=== PATIENT | male | born 1965 | race Caucasian/White ===

== ENCOUNTER → 2019-12-20 11:01 | Outpatient (CLI) | payer MEDICARE, SELFPAY ==
[2019-12-20 10:36] VITALS: BMI 34.2
[2019-12-20 13:02] LABS: Anion Gap 7 (5-15); BUN 16 mg/dL (7-18); Calcium,Total 9.6 mg/dL (8.5-10.1); Chloride 104 mmol/L (98-107); EST Glomerular Filtration Rate 83 mL/min (>60); Est Glom Filt Rate - Afr Amer 100 mL/min (>60); Glucose 148 mg/dL (74-106); Potassium 4.3 mmol/L (3.5-5.1); Sodium Level 137 mmol/L (136-145)
== END ==
PROVIDERS: PCP Family Medicine; Referring Provider Family Medicine; Visit Provider Family Medicine
DX: I10 Essential (primary) hypertension (principal)
CPT/HCPCS: 36415; 80048

== ENCOUNTER → 2020-08-19 10:57 | Outpatient (CLI) | payer MEDICARE, SELFPAY ==
[2020-07-01 10:59] VITALS: BMI 35.3
[2020-08-19 12:42] LABS: Hemoglobin A1c 7.9 % (3.8-5.6)
[2020-08-19 12:44] LABS: Anion Gap 3 (5-15); BUN 15 mg/dL (7-18); BUN/Creat Ratio 14.9 RATIO (10-20); Calcium,Total 9.1 mg/dL (8.5-10.1); Chloride 105 mmol/L (98-107); Creatinine, Serum 1.01 mg/dL (0.70-1.30); EST Glomerular Filtration Rate 82 mL/min (>60); Est Glom Filt Rate - Afr Amer 99 mL/min (>60); Glucose 202 mg/dL (74-106); Potassium 4.4 mmol/L (3.5-5.1); Sodium Level 136 mmol/L (136-145)
== END ==
PROVIDERS: PCP Family Medicine; Referring Provider Family Medicine; Visit Provider Family Medicine
DX: E11.9 Type 2 diabetes mellitus without complications (principal)
CPT/HCPCS: 36415; 80048; 83036

== ENCOUNTER → 2020-08-27 17:38 | Outpatient (CLI) | payer MEDICARE, SELFPAY ==
[2020-07-01 10:59] VITALS: BMI 35.3
--- NOTE | 2020-08-27 17:46 | MRI_ITS ---
STUDY: MRI LUMBAR SPINE WITHOUT CONTRAST REASON FOR EXAM: Male, 55 years old. increasing pain TECHNIQUE: Standardized fat and water weighted pulse sequences were obtained in the sagittal and axial planes. COMPARISON: None FINDINGS: Normal lumbar lordosis. There is no substantial scoliosis. Normal conus medullaris that terminates at the T12. L1-2: There is minimal disc space narrowing and endplate spondylosis. There is no significant disc herniation, central canal or foraminal stenosis. Moderate hypertrophic facet arthropathy L2-3: There is minimal disc space narrowing and endplates spondylosis. Mild disc bulge and moderate facet arthropathy with moderate central canal stenosis. No significant foraminal stenosis. L3-4: There is moderate disc space narrowing and endplates spondylosis. Mild disc bulge and hypertrophic facet arthropathy with moderate central canal stenosis. Mild right and mild left foraminal stenosis. There is laminectomy L4-5: There is moderate disc space narrowing and endplates spondylosis. Mild disc bulge and hypertrophic facet arthropathy with moderate central canal stenosis. Mild right and mild left foraminal stenosis. There is laminectomy L5-S1: There is mild disc space narrowing and endplates spondylosis. Mild disc bulge and severe facet arthropathy without significant central canal stenosis. Mild right and mild left foraminal stenosis. There is laminectomy. Normal visualized sacral ala. MRI/Spine Lumbar (Routine) IMPRESSION: L2/L3: Moderate central canal stenosis. L3/L4: Moderate central canal stenosis. L4/L5: Moderate central canal stenosis. Laminectomies Electronically Signed: Mamie Rivera MD at 15:57 EDT Tel , Service support ,
== END ==
PROVIDERS: PCP Family Medicine; Referring Provider Family Medicine; Visit Provider Family Medicine
DX: M48.061 Spinal stenosis, lumbar region without neurogenic claudication (principal)
CPT/HCPCS: 72148

== ENCOUNTER 2020-10-09 12:43 | Emergency (ER) | payer MEDICARE, SELFPAY ==
[2020-07-01 10:59] VITALS: BMI 35.3
[2020-10-09 12:43] VITALS: BP 178/91; PULSE 95; RESP 16; TEMP 36.6; O2SAT 97; BMI 33.7
[2020-10-09] MEDS: Ketorolac 30 MG/ML Syringe IM (13:55)
[2020-10-09] MEDS: morphine 10 MG/ML Syringe 8 MG IM (13:55)
--- NOTE | 2020-10-09 15:02 | EX.ED.DYSGE1 ---
HPI History of Present Illness Chief Complaint: Back Narrative Narrative: 55-year-old male patient Dr. Jaxson Crowe who has a longstanding history of back pain. He reports it is gradually worsened over the past 2 years. He denies any recent injury. No fall, MVA, or change in activity. However, he reports that over the past 3 weeks when he walks he feels like he is going to lose control of his bowels. He has not had any fecal incontinence. He is not had any urinary retention. Patient reports he has an aching lower back pain is now 10 hours and 5-10 currently. Is worsened by walking and standing. Relieved by remaining still. He reports that he has paresthesias in his legs bilaterally that come and go. He denies any new paresthesias currently. Patient has a history of a laminectomy in 1990. He had an MRI ordered by his primary care physician on August 27. [facility] Medical History (Updated 10/09/20 @ 17:[address] Melquiades Chang MD) Back problem Diabetes Hypertension Neuropathy Home Medications metformin 500 mg tablet,extended release 24 hr 500 mg PO DAILY #90 tab 07/01/20 [Rx Last Taken Unknown] glipizide 2.5 mg tablet, extended release 24 hr 2.5 mg PO DAILY #60 tablet 08/19/20 [Rx Last Taken Unknown] amlodipine 5 mg tablet 5 mg PO DAILY #90 tab 10/01/20 [Rx Last Taken Unknown] ibuprofen 400 mg PO BID 10/09/20 [History Last Taken Unknown] naproxen 500 mg PO BID #14 tab 10/09/20 [Rx Last Taken Unknown] ondansetron 4 mg PO Q8H PRN #10 tab 10/09/20 [Rx Last Taken Unknown] oxycodone-acetaminophen [Percocet] 1 tab PO Q6H PRN 5 Days #20 tab 10/09/20 [Rx Last Taken Unknown] Allergy/AdvReac Type Severity Reaction Status Date / Time lisinopril Allergy Severe cough Verified 10/09/20 12:45 Family History Grandfather Brain cancer Father Myocardial infarction Surgical History History of appendectomy History of back surgery History of carpal tunnel surgery of left wrist History of carpal tunnel surgery of right wrist History of shoulder surgery History of uvulopalatopharyngoplasty Social History Smoking Status: Former smoker how long ago did patient quit smokin years ago alcohol intake: current alcohol intake frequency: holidays/special occasions only Alcohol type: beer substance use type: does not use what type of physical activity do you participate in: none ROS ROS ED Constitutional Constitutional ED: Denies chills, fever(s) or sweats Eyes Eyes: Denies change in vision ENT ENT ED: Denies sore throat Cardiovascular Cardiovascular: Denies chest pain Respiratory/Chest Respiratory/Chest: Denies cough, dyspnea or dyspnea on exertion Gastrointestinal Gastrointestinal: Denies abdominal pain, diarrhea, melena, nausea or vomiting Genitourinary Genitourinary ED: Denies dysuria or urinary frequency Musculoskeletal Musculoskeletal: Reports back pain; Denies myalgias Integumentary Denies rash Neurologic Neurologic: Reports paresthesias; Denies headache(s) or weakness EXAM Physical Exam Const Vital Signs: 10/09/20 12:43 Temperature 97.8 F Temperature Source Temporal Pulse Rate 95 Respiratory Rate 16 Blood Pressure 178/91 H Blood Pressure Mean 120 Pulse Ox 97 Oxygen Delivery Method Room Air Positive well nourished and well developed General Appearance ED: well developed HEENT normocephalic and atraumatic Eyes PERRL Neck no lymphadenopathy, supple and no JVD General: Negative for tenderness Chest Wall Chest: Negative for tenderness Resp clear to auscultation bilaterally Effort and Inspection: Negative for respiratory distress Cardio regular rate, regular rhythm and no murmurs GI normal to inspection, nondistended, normoactive bowel sounds, soft to palpation and non-tender GI Narrative: No guarding, rebound, or peritoneal signs Narrative: Rectal exam shows decreased tone, but it he does have tone. There is normal perianal sensation. Patient refused a catheter for postvoid residual. Back/Spine Back/Spine Narrative: Diffuse moderate tenderness to palpation over the lumbar spine and the paraspinous musculature in the lumbar region. No point tenderness. Negative straight leg bilaterally. 5/5 DR, PF, EHL on the left. He has foot drop on the right. He has decreased sensation light touch diffusely right leg and lateral right thigh. Patient reports that the foot drop and paresthesias are chronic. Normal sensation light touch on the left. 2+ dorsalis pedis pulse bilaterally. Extremity: No clubbing, cyanosis, or edema. Extremity General Extremety ED: Negative for edema or tenderness General Extremity: Negative for edema Neuro oriented x3, CN's II-XII intact bilaterally and no sensory deficits noted Sensorium / Orientation: awake and alert Motor Exam: strength 5/5 throughout Psych mental status grossly normal Skin no rashes or lesions noted [facility] Treatment and Re-Evaluation Comments:: Emergency department course: Patient was given Toradol and morphine IM. He is resting more comfortably. Treatment plan: The patient was discussed with Dr. Walker who will see him in the office in 6 days. Patient will be discharged with Percocet, naproxen, and Zofran. The signs and symptoms of cauda equina syndrome were discussed and he is instructed to return for these. Disposition: To home in improved and stable condition. This note was generated with [employer] dictation software. It may contain incorrect words, spelling, and punctuation that were not noted in review of the chart prior to signing. Discharge Plan Triage Chief Complaint: Back ED Provider: Melquiades Chang Dx/Rx/DC Orders Clinical Impression: Spinal stenosis Instructions: ED Back Pain (Acute or Chronic) Prescriptions: New oxycodone-acetaminophen [Percocet] 5-325 mg tablet 1 tab PO Q6H PRN (Reason: pain) 5 Days Qty: 20 RF: 0 ondansetron 4 mg tablet,disintegrating 4 mg PO Q8H PRN (Reason: nausea and vomiting) Qty: 10 RF: 0 naproxen 500 MG tablet 500 mg PO BID Qty: 14 RF: 0 No Action metformin 500 mg tablet extended release 24 hr 500 mg PO DAILY Qty: 90 RF: 1 glipizide 2.5 mg tablet extended release 24hr 2.5 mg PO DAILY Qty: 60 RF: 0 ibuprofen 400 mg Tablet 400 mg PO BID RF: 0 amlodipine 5 mg tablet 5 mg PO DAILY Qty: 90 RF: 1 Primary Care Provider: Jaxson Crowe Referrals: Jaxson Crowe DO [Primary Care Provider] - Omkar Walker DO [STAFF PHYSICIAN] - 10/15/20 Disposition Disposition: Home, self care Discharge Date/Time: 10/09/20 15:15
== END 2020-10-09 15:15 | disposition home or self-care (01) ==
LOC: ED 13:47
PROVIDERS: Emergency Provider Emergency Medicine; PCP Family Medicine
DX: M48.061 Spinal stenosis, lumbar region without neurogenic claudication (principal); I10 Essential (primary) hypertension; E11.40 Type 2 diabetes mellitus with diabetic neuropathy, unspecified; Z79.84 Long term (current) use of oral hypoglycemic drugs; Z79.899 Other long term (current) drug therapy; Z87.891 Personal history of nicotine dependence
CPT/HCPCS: 96372; 99283

== ENCOUNTER 2020-12-08 15:00 | Outpatient (RCR) | payer MEDICARE, SELFPAY ==
[2020-10-27 10:00] VITALS: BMI 36.8
--- NOTE | 2020-11-06 15:26 | HP.PTEVAL_ITS ---
Patient's Visit Information TIMOTEO REYES is a 55 year old M referred to Physical Therapy by Dr. Mina Mcadams MD with a diagnosis of Lumbago. Date of Evaluation: 11/06/20 Physical Therapist: Angelica Michelle DPT - Visit Plan Frequency: 2x /Week Duration: 4 Weeks Plan: Aquatic Therapy- focus on LE and core strength/stabilization - Subjective Patient reports that he was in PT for a year about 30 years ago when he injured his back-had spinal stenosis at 24 years old. They put him on disability because of his back- but went back to work- he is still currently working but is off due to his shoulder. He has been off for his shoulder for about 4 years. Has not been doing heavy lifting for over 4 years. 3-4 years he has had problems with his back but in July he was walking and he suddenly had saddle parasthesis- went and sat down and it happened later that day too- now if he walks more than 100 feet it happens. When he stands he feels that his legs are very weak. Numbess all the way down to the toes and has N/T in his genital area. If he sits down he leans forwards then pain goes away. Agg: walking, standing Worst: 710 Best: 3/10 Mostly described as a toothache. Eases: sitting and leaning forwards, laying on the right side. Sleep: disturbed- on the couch due to his right shoulder. MRI and x-rays done by the neurologist. He feels he has claudication- possible cuada equina- is going to have an EMG. Thinks he will probably have to have surgery to decrease the pain. PMHX/Meds: see list scanned in chart. - Objective Posture: poor in both sitting and standing with moderate forward head and rounded shoulders- can correct RS with verbal and tactile cues but is unable to maintain. Gait: antalgic- foot drop on the right LE with poor heel/toe pattern. Stairs: asc/desc 8 recip with 1 HR- poor control with descent. HR/TR: Left side able without UE A- Right: unable to TR or HR in sitting or standing. SLS: weight shift but unable to SLS without UE A. ROM: Flexion: hands to mid maciel, Extn: neutral, SB: decreased by 50% Rot: decreased by 50%- pain with all lumbar motions Hip/Ankle/Knee: WFL. Strength: Core: poor, Hip: 4/5 throughout, Knee: 5/5 Ankle: Left: 5/5, Right: 2+/5. Special Test: Dural signs: positive, MELISSA: negative, Slump: positive. Sensation: diminished in right LE to gross touch - Goals Goal 1:: Patient will be I with HEP and progression Goal Time Frame: 4-6 Weeks Goal 2:: Patient will maintain proper posture t/o tx session to demo increased core s/s Goal Time Frame: 4-6 Weeks Goal 3:: Patient will report no more than 3/10 pain for 1 week Goal Time Frame: 4-6 Weeks - Rehabilitation Potential Physical Therapy Diagnosis: Patient presents with hypomobility- he has decreased ROM, LE and core strength/stabilization, flexibility and muscular endurance l eading to poor posture and increased pain with ADL's. Rehabilitation Potential: Fair - Anticipated Interventions Therapeutic Exercise to Include: Strength training, Endurance training, Balance training, Agility training, Body mechanics, Postural training, Flexibilty training, Gait and locomotor training, Neuromotor development, In an aquatic setting, Passive ROM, Active ROM, Dynamic Lumbar Stabilization, Scapular Strength/Stabilization For the Purpose of:: To decrease pain, To improve muscle performance and motor function Thank you for the opportunity to evaluate your patient. For Medicare and Medicare HMO plans, please review the plan of care and approve it. It will need to be FAXED BACK to us at [phone] for Medicare purposes. For Medicare only, by signing this I certify the plan of care. Please let me know if there are questions or concerns regarding this plan of care. Physician Signature: Date:
--- NOTE | 2020-12-08 15:56 | HP.PTDCSUM ---
It has been my pleasure to treat TIMOTEO REYES referred by Dr. Mina Mcadams MD, with the diagnosis of Lumbago for a total of 10 visit(s). Discharge Date: Please see the following information for a summary of their discharge status. Subjective: Patient reports that his back is about the same- feels like the medication just delays it. He can walk a little further but still sitting down makes it less. Worst: 6/10 aggravated all the time- tooth ache. Goes back to the MD the 29 of December. Is supposed to get an EMG but has not called yet. Is planning to have a C9 to get his shoulder done. No falls but still has some significant drop foot on the right. LB Pain Intensity (Out of 10): 6 bilat. LE Pain Intensity (Out of 10): 6 % Improvement: 25 Objective/Function: Posture: poor in both sitting and standing with moderate forward head and rounded shoulders- can correct RS with verbal and tactile cues but is unable to maintain. Gait: antalgic- foot drop on the right LE with poor heel/toe pattern. Stairs: asc/desc 8 recip with 1 HR- poor control with descent. HR/TR: Left side able without UE A- Right: unable to TR or HR in sitting or standing. SLS: weight shift but unable to SLS without UE A. ROM: Flexion: hands to mid maciel, Extn: neutral, SB: decreased by 50% Rot: decreased by 50%- pain with all lumbar motions Hip/Ankle/Knee: WFL. Strength: Core: poor, Hip: 4/5 throughout, Knee: 5/5 Ankle: Left: 5/5, Right: 2+/5. Special Test: Dural signs: positive, MELISSA: negative, Slump: positive. Sensation: diminished in right LE to gross touch. No significant changes since initial IE Goal 1:: Patient will be I with HEP and progression Goal Progress: Goal Met Goal 2:: Patient will maintain proper posture t/o tx session to demo increased core s/s Goal Progress: Not Progressing Goal 3:: Patient will report no more than 3/10 pain for 1 week Goal Progress: Not Progressing Plan: 12/08/2020: Discharge- return to MD for further evaluation. *f/u with new HEP glute med. strengthening, hip flexor/quad, gastroc and HSS. Aquatic Therapy- focus on LE and core strength/stabilization If there are questions or concerns regarding this patient's physical therapy, please feel free to call me at [phone]. Thank you for the referral of this patient. Sincerely, Angelica Michelle, [facility] Balance/Gait/Functional tests - Balance/Special Test Scores Oswestry Low Back Score: 23
== END 2020-12-08 19:00 | disposition home or self-care (01) ==
LOC: PT 15:00
PROVIDERS: PCP Family Medicine; Referring Provider Psychiatry & Neurology Neurology; Visit Provider Psychiatry & Neurology Neurology
DX: M54.42 Lumbago with sciatica, left side (principal); M54.41 Lumbago with sciatica, right side; M48.062 Spinal stenosis, lumbar region with neurogenic claudication
CPT/HCPCS: 97113; 97162; 97164

== ENCOUNTER → 2020-12-29 14:01 | Outpatient (CLI) | payer MEDICARE, SELFPAY ==
[2020-12-02 10:02] VITALS: BMI 36.7
[2020-12-29 18:05] LABS: Hematocrit 46.7 % (40-54); Hemoglobin 15.9 g/dL (13.0-16.5); Mean Corpuscular Hgb 30.9 pg (27.0-32.0); Mean Corpuscular Volume 90.7 fL (80-94); Mean Platelet Vol. 10.2 fl (6.2-12.0); Platelet Count 222 K/mm3 (150-450); RBC Distribution Width CV 12.4 % (11.6-14.6); RBC Distribution Width SD 41.3 fl (35.1-43.9); Red Blood Count 5.15 M/mm3 (4.6-6.2)
[2020-12-29 18:14] LABS: Vitamin B12 427 pg/mL (211-911)
[2020-12-29 18:38] LABS: Thyroid Stim Hormone (TSH) 0.99 uIU/mL (0.358-3.74)
[2020-12-31 20:08] LABS: Free Kappa Light Chains 22.2 mg/L (3.3-19.4)
== END ==
PROVIDERS: PCP Family Medicine; Referring Provider Psychiatry & Neurology Neurology; Visit Provider Psychiatry & Neurology Neurology
DX: M53.9 Dorsopathy, unspecified (principal); E11.42 Type 2 diabetes mellitus with diabetic polyneuropathy
CPT/HCPCS: 36415; 82607; 82746; 83883; 84443; 85027

== ENCOUNTER → 2021-01-02 11:06 | Outpatient (CLI) | payer MEDICARE, SELFPAY ==
[2020-12-02 10:02] VITALS: BMI 36.7
--- NOTE | 2021-01-02 13:49 | NEURO ---
NCS and/or EMG Patient Report Ordering Doctor: Mina Mcadams DATE OF SERVICE: 01/02/21 Indication: Chronic lower extremity weakness (right greater than left). Symptoms of neurogenic claudication with prolonged standing. History of remote lumbar decompression and fusion. Evaluate for worsening radiculopathy. Findings: Nerve conduction studies were performed in the right and left lower extremities. The right peroneal motor study recording the extensor digitorum brevis showed a reduced amplitude, normal distal latency and normal conduction velocity. No conduction block or focal slowing was present across the fibular neck. The right peroneal motor study recording the tibialis anterior showed a reduced amplitude, normal distal latency and normal conduction velocity. No conduction block or focal slowing was present across the fibular neck. The right tibial motor study recording the abductor hallucis brevis showed a normal amplitude, normal distal latency and normal conduction velocity. Right sural sensory response showed a normal amplitude and conduction velocity. Right superficial peroneal sensory response showed a normal amplitude and borderline conduction velocity. The left peroneal motor study recording the extensor digitorum brevis showed a normal amplitude, normal distal latency and normal conduction velocity. No conduction block or focal slowing was present across the fibular neck. The left peroneal motor study recording the tibialis anterior showed a normal amplitude, normal distal latency and normal conduction velocity. No conduction block or focal slowing was present across the fibular neck. The left tibial motor study recording the abductor hallucis brevis showed a normal amplitude, normal distal latency and normal conduction velocity. Left sural sensory response showed a normal amplitude and borderline conduction velocity. Left superficial peroneal sensory response showed a normal amplitude and conduction velocity. Needle EMG of the right lower extremity muscles was performed. No denervation was present in any muscle. Motor units in the right tibialis anterior, flexor digitorum longus and tensor fascia sho were large amplitude, long duration with reduced recruitment. Activation was decreased in the tibialis anterior. Motor units were borderline large in the vastus medialis and medial gastrocnemius. Needle EMG of the left lower extremity muscles was performed. No denervation was present in any muscle. Motor units in the left tibialis anterior, extensor hallucis longus and tensor fascia sho were large amplitude, long duration with reduced recruitment. All other motor unit morphology, activation and recruitment patterns were normal. The lumbar paraspinal muscles were not sampled due to a history of prior low back surgery. Impression: This is an abnormal study. There is electrophysiologic evidence consistent with chronic, bilateral, L5 radiculopathies (more severe on the right). There was no active denervation to suggest ongoing motor axon loss. In addition, there was no evidence of superimposed peripheral neuropathy or peroneal neuropathy in either the right or left lower extremity. The decreased activation seen in some right lower extremity muscles is of unclear significance. This can be seen in cases of pain, poor effort or lesions of the central nervous system. Clinical correlation is recommended. Eric Pimentel D.O.
== END ==
PROVIDERS: PCP Family Medicine; Referring Provider Psychiatry & Neurology Neurology; Visit Provider Psychiatry & Neurology Neurology
DX: M54.41 Lumbago with sciatica, right side (principal); M54.42 Lumbago with sciatica, left side; M48.062 Spinal stenosis, lumbar region with neurogenic claudication
CPT/HCPCS: 95886; 95911

== ENCOUNTER → 2021-01-29 11:39 | Outpatient (CLI) | payer MEDICARE, SELFPAY ==
[2021-02-03 16:09] LABS: Albumin 3.6 g/dL (2.9-4.4); Alpha-1-Globulins 0.2 g/dL (0.0-0.4); Alpha-2-Globulins 0.9 g/dL (0.4-1.0); Gamma Globulin 1.1 g/dL (0.4-1.8); Immunoglobulin A 364 mg/dL (90-386); Immunoglobulin G 1083 mg/dL (603-1613); Immunoglobulin M 31 mg/dL (20-172); PROEL- TOTAL PROTEIN 7.1 g/dL (6.0-8.5)
== END ==
PROVIDERS: PCP Family Medicine; Referring Provider Nurse Practitioner Family; Visit Provider Nurse Practitioner Family
DX: G62.9 Polyneuropathy, unspecified (principal)
CPT/HCPCS: 36415; 82784; 84165; 86334; 86335

== ENCOUNTER → 2022-08-25 | Outpatient (CLI) | payer MEDICARE, SELFPAY ==
[2022-08-25 10:47] LABS: AST(SGOT) 37 U/L (15-37); Absolute Lymphocyte Count 0.73 X10^3/uL (0.83-4.51); Absolute Neutrophil Count 3.2 X10^3/uL (2.0-7.7); Alanine Aminotransfer ALT/SGPT 50 U/L (16-61); Albumin, Serum 3.6 g/dL (3.2-5.0); Alkaline Phosphatase 57 U/L (45-117); Anion Gap 2 (5-15); BUN 19 mg/dL (7-18); BUN/Creat Ratio 20.6 RATIO (10-20); Basophil# 0.04 X10^3/uL; Basophil% 0.8 % (0-1); Calcium,Total 8.8 mg/dL (8.5-10.1); Chloride 104 mmol/L (98-107); Creatinine, Serum 0.92 mg/dL (0.70-1.30); EST Glomerular Filtration Rate 90 mL/min (>60); Eosinophil# 0.11 X10^3/uL; Eosinophils% 2.2 % (0-5); Est Glom Filt Rate - Afr Amer 109 mL/min (>60); Globulin 3.6 g/dL (2.2-4.2); Glucose 154 mg/dL (74-106); Hemoglobin 14.6 g/dL (13.0-16.5); Lymphocyte # 0.73 X10^3/ul (0.83-4.51); Lymphocyte % 14.7 % (19-41); Mean Corp Hgb Conc 33.2 g/dL (32-36); Mean Corpuscular Volume 90.3 fL (80-94); Monocyte# 0.87 X10^3/uL; Monocyte% 17.6 % (0-10); NRBC Flagged by Analyzer 0 % (0-5); Neutrophil # 3.18 X10^3/uL (2.7-7.7); Neutrophil % 64.3 % (47-70); Platelet Count 185 K/mm3 (150-450); Potassium 4.1 mmol/L (3.5-5.1); Protein, Total 7.2 g/dL (6.4-8.2); RBC Distribution Width CV 13.2 % (11.6-14.6); RBC Distribution Width SD 44.1 fl (35.1-43.9); Red Blood Count 4.87 M/mm3 (4.6-6.2); Sodium Level 134 mmol/L (136-145)
[2022-08-25 10:51] LABS: Hemoglobin A1c 7.5 % (3.8-5.6)
[2022-08-25 10:54] LABS: Microalbumin,Random Urine 24.9 mg/L (NO RANGE EST.); Microalbumin:Creatinine Ratio 12.3 mg/g CRE (<30 mg/g CRE)
== END | disposition home or self-care (01) ==
LOC: BIMLAB 08:32
PROVIDERS: PCP Family Medicine; Referring Provider Nurse Practitioner Family; Visit Provider Nurse Practitioner Family
DX: Z01.818 Encounter for other preprocedural examination (principal); E11.9 Type 2 diabetes mellitus without complications; M53.9 Dorsopathy, unspecified; I10 Essential (primary) hypertension
CPT/HCPCS: 36415; 80053; 82043; 82570; 83036; 85025

== ENCOUNTER 2022-12-24 06:11 | Day surgery (SDC) | payer MEDICARE, SELFPAY ==
[2022-12-24 06:39] VITALS: BP 142/98; PULSE 97; RESP 16; TEMP 36.2; O2SAT 100; BMI 32.5
--- NOTE | 2022-12-24 06:48 | PCM.HP.BLA ---
History and Physical Date of Admission: 12/24/22 Intake Vital Signs 11/23/2307:29 12/06/2313:28 Height 5 ft 8.5 in 5 ft 8 in Weight: 226 lb 10 oz 225 lb BMI 33.9 34.2 BP 126/80 H 174/92 H Blood Pressure Location Lt brachial Lt brachial Position Sitting Sitting Respiration 17 17 Pulse 93 80 Pulse Source Monitor Monitor Temp 98.2 F 97.3 F L Temp Source Temporal Temporal Pulse Oximetry (%) 98 98 Oxygen Delivery Method room air room air Intake Visit Reasons: MELENA Chief Complaint: melena Is patient in pain?: No Allergies lisinopril Adverse Reaction (Severe, Verified 12/06/22 14:29) cough Medications tizanidine 4 mg capsule 8 mg (2 x 4 mg) PO QHS PRN low back pain #60 caps 05/25/22 [Rx Confirmed 12/06/22] amlodipine 5 mg tablet 5 mg PO DAILY #90 tabs 06/01/22 [Rx Confirmed 12/06/22] diclofenac sodium 75 mg tablet,delayed release 75 mg PO BID 07/07/22 [History Confirmed 12/06/22] metformin 500 mg tablet,extended release 24 hr 500 mg PO BID #180 tabs 07/07/22 [Rx Confirmed 12/06/22] PFSH Medical History Back problem Carpal tunnel syndrome Cervical spinal stenosis Diabetes Hypertension Neuropathy Osteoarthritis of shoulder Preoperative clearance Surgical History History of appendectomy History of back surgery History of carpal tunnel surgery of left wrist History of carpal tunnel surgery of right wrist History of shoulder surgery History of uvulopalatopharyngoplasty Family History Grandfather Brain cancerFather Myocardial infarction Social History household members: children housing: house Smoking Status: Former smoker pack-years: 5 how long ago did patient quit smokin years ago alcohol intake: current alcohol intake frequency: a few times a week Alcohol type: beer details: Social Drinker substance use type: does not use what type of physical activity do you participate in: none do you feel safe at home: Yes HPI HPI HPI: Patient is a 57-year-old male here for blood in his stool. He reports is been going on for about 2 months. He denies abdominal pain. He says the blood is fairly dark and it is in the stool. He does not report any abdominal pain. Plan on colonoscopy to evaluate the bleeding. He has never had a colonoscopy in the past. I explained endoscopy in detail to the patient. I explained the risks including but not limited to stroke or heart attack with anesthesia, perforation of the GI tract, bleeding, infection. I explained that any of these could necessitate further emergency surgery. The patient understands and all questions were answered sufficiently. The patient wishes to proceed with procedure. Neal Flowers MD Pager: [facility] [address] [place] [address] [address] [place] [address] Office: ROS General General: Yes weight change; No appetite, fatigue, colon cancer, breast cancer or weakness HEENT HEENT: No difficulty swallowing, eye injury, eye surgery, swollen glands or hoarseness Endo Endocrine: Yes diabetes mellitus; No thyroid disease, thyroid cancer, Hair loss, heat intolerance or cold intolerance Skin Skin: No rash or changing moles Musc Musculoskeletal: Yes back problems, arthritis and rheumatoid arthritis; No gout or joint pain Cardio Cardiovascular: Yes high blood pressure; No murmur, pacemaker, heart disease, atrial fibrillation, heart attack, heart stent, palpitations, shortness of breat with exertion or chest pain Psych Psychiatric: No depression, anxiety or hearing voices Resp Respiratory: No shortness of breath, No sleep apnea, No cough, No COPD, No asthma, No emphysema and No wheezing Gastro Gastrointestinal: No abdominal pain, No nausea or vomiting, No diarrhea, No constipation, Yes blood in stool, No acid reflux, No hemorrhoids, No ulcers, No gallbladder problem and No black,tarry stools Johnathan Hematologic: No blood thinners, No blood disorders, No bleeding, No anemia and No blood clots Neuro Neurologic: No system reviewed and no additional complaints, except as documented, No as per HPI, No abnormal gait, No abnormal hearing, No abnormal movements, No abnormal speech, No behavioral changes, No burning sensations, No confusion, No convulsions, No disequilibrium, No dizziness, No localized weakness, No frequent falls, No headache(s), No lack of coordination, No loss of vision, No memory loss, Yes numbness, No other visual disturbances, No radicular pain, No restless legs, No sensory deficit, No syncope, Yes tingling, No tremor(s), No weakness and No other I have examined the patient and the H&P has been reviewed. There are no clinical changes since date of exam.
[2022-12-24] MEDS: Lactated Ringers 1,000 ML 15 ML IV (06:53)
[2022-12-24 07:17] LABS: Bedside Glucose 156 mg/dL (74-106)
[2022-12-24 07:54] VITALS: BP 124/84; BP 142/98; PULSE 71; RESP 16; TEMP 36.2; O2SAT 98
[2022-12-24 08:00] VITALS: BP 115/83; BP 142/98; PULSE 77; RESP 16; O2SAT 96
--- NOTE | 2022-12-24 08:01 | OP.COLON_ITS ---
Patient Name: Pranav Jenkins Procedure Date: 12/24/2022 7:27 AM Date of : 1965 Age: 57 Procedure: Colonoscopy Indications: Rectal bleeding Providers: Neal Flowers MD Referring MD: Jaxson Crowe Medicines: Monitored Anesthesia Care Patient Profile: This is a 57 year old male. Refer to note in patient chart for documentation of history and physical. Last Colonoscopy: none. The patient's first colonoscopy is today. Complications: No immediate complications. Procedure: Pre-Anesthesia Assessment: - Prior to the procedure, a History and Physical was performed, and patient medications and allergies were reviewed. The patient's tolerance of previous anesthesia was also reviewed. The risks and benefits of the procedure and the sedation options and risks were discussed with the patient. All questions were answered, and informed consent was obtained. Prior Anticoagulants: The patient has taken no anticoagulant or antiplatelet agents. After reviewing the risks and benefits, the patient was deemed in satisfactory condition to undergo the procedure. After I obtained informed consent, the scope was passed under direct vision. Throughout the procedure, the patient's blood pressure, pulse, and oxygen saturations were monitored continuously. The Colonoscope was introduced through the anus and advanced to the cecum, identified by appendiceal orifice and ileocecal valve. The colonoscopy was performed without difficulty. The patient tolerated the procedure well. The quality of the bowel preparation was good. The colonoscopy was performed without difficulty. Scope In: 7:39:05 AM Scope Withdrawal Time 0 hours 5 minutes 29 seconds Scope Out: 7:49:20 AM Total Procedure Duration Time 0 hours 10 minutes 15 seconds Findings: The entire examined colon appeared normal on direct and retroflexion views. Impression: - The entire examined colon is normal on direct and retroflexion views. - No specimens collected. Recommendation: - Discharge patient to home. - Resume previous diet. - Continue present medications. - Repeat colonoscopy in 10 years for screening purposes. Procedure Code(s): --- Professional --- 27984, Colonoscopy, flexible; diagnostic, including collection of specimen(s) by brushing or washing, when performed (separate procedure) Diagnosis Code(s): --- Professional --- K62.5, Hemorrhage of anus and rectum CPT copyright 2021 [employer]. All rights reserved. The codes documented in this report are preliminary and upon [employer] review may be revised to meet current compliance requirements. Neal Flowers MD 12/24/2022 8:00:43 AM This report has been signed electronically. Number of Addenda: 0 Note Initiated On: 12/24/2022 7:27 AM
--- NOTE | 2022-12-24 08:01 | OP.CCLET_ITS ---
12/24/2022 Jaxson Crowe Re : Colonoscopy procedure for Pranav Jenkins Dear Dr. Crowe This procedure was performed on Saturday, December 24, 2022. My impressions and recommendations are as follows: Impressions : - The entire examined colon is normal on direct and retroflexion views. - No specimens collected. Recommendations : - Discharge patient to home. - Resume previous diet. - Continue present medications. - Repeat colonoscopy in 10 years for screening purposes. My findings are described in the full procedure note, which is enclosed. If I can be of further assistance, please feel free to contact me at Doctor phone number(s): , Work: . Sincerely, Neal Flowers MD 12/24/2022 8:00:43 AM This report has been signed electronically.
[2022-12-24 08:05] VITALS: BP 133/92; BP 142/98; PULSE 84; RESP 16; O2SAT 98
[2022-12-24 08:10] VITALS: BP 134/96; BP 142/98; PULSE 81; RESP 16; TEMP 36.1; O2SAT 97
[2022-12-24 08:29] VITALS: BP 142/98
== END 2022-12-24 08:47 | disposition home or self-care (01) ==
LOC: EN 06:12 → AC 06:14
PROVIDERS: PCP Family Medicine; Referring Provider Family Medicine; Visit Provider Surgery
PROC: 0DJD8ZZ Inspection of Lower Intestinal Tract, Via Natural or Artificial Opening Endoscopic (ICD-10-PCS; CPT 45378; principal; 2022-12-24 07:25)
DX: K62.5 Hemorrhage of anus and rectum (principal); E11.40 Type 2 diabetes mellitus with diabetic neuropathy, unspecified; Z87.891 Personal history of nicotine dependence; I10 Essential (primary) hypertension; Z79.84 Long term (current) use of oral hypoglycemic drugs
CPT/HCPCS: 45378; 82962; J7120; J2405

== ENCOUNTER → 2023-04-14 | Outpatient (CLI) | payer MEDICARE, SELFPAY ==
--- NOTE | 2023-04-14 13:46 | RAD_ITS ---
STUDY: X-RAY CHEST REASON FOR EXAM: Male, 57 years old. Pleural effusion. TECHNIQUE: Frontal and lateral views of the chest. COMPARISON: None. FINDINGS: Cardiomegaly, sternotomy wires, prominent central pulmonary arteries, hyperinflation, scattered healed parenchymal granulomatous calcifications, blunting of the left costophrenic angle representing small effusion or pleural scarring and diffuse moderate thoracic spondylosis. Right proximal humeral hemiarthroplasty. No abnormality of the visualized soft tissue structures of the upper abdomen. RAD/Chest PA and Lateral IMPRESSION: No active or acute cardiopulmonary disease. Electronically Signed: Manas Catalan MD at 15:50 EST ,
== END | disposition home or self-care (01) ==
LOC: RAD 13:45
PROVIDERS: PCP Family Medicine; Referring Provider Family Medicine; Visit Provider Family Medicine
DX: J90 Pleural effusion, not elsewhere classified (principal)
CPT/HCPCS: 71046

== ENCOUNTER → 2023-04-28 | Outpatient (CLI) | payer MEDICARE, SELFPAY ==
--- NOTE | 2023-04-28 15:12 | RAD_ITS ---
INDICATION: pleural effusion EXAMINATION/TECHNIQUE: X-RAY - XR Chest 2 Views COMPARISON: Prior study dated: 04/14/2023 FINDINGS: LINES/DEVICES: None. LUNGS: Resolved left pleural effusion no focal infiltrate is seen. MEDIASTINUM AND CARDIOVASCULAR STRUCTURES: Normal cardiac silhouette. Status post median sternotomy. Calcified right hilar nodes unchanged. BONES AND SOFT TISSUES: Right humeral hemiarthroplasty is again seen. RAD/Chest PA and Lateral IMPRESSION: No radiographic evidence of acute cardiopulmonary disease. Electronically Signed: Justin Ivey MD at 8:40 EST ,
== END | disposition home or self-care (01) ==
LOC: RAD 15:11
PROVIDERS: PCP Family Medicine; Referring Provider Physician Assistant; Visit Provider Physician Assistant
DX: J90 Pleural effusion, not elsewhere classified (principal); R07.81 Pleurodynia
CPT/HCPCS: 71046

== ENCOUNTER → 2024-06-19 | Outpatient (CLI) | payer MEDICARE, SELFPAY ==
[2024-06-19 15:50] LABS: AST(SGOT) 21 U/L (15-37); Alanine Aminotransfer ALT/SGPT 25 U/L (16-61); Albumin, Serum 3.8 g/dL (3.2-5.0); Alkaline Phosphatase 108 U/L (45-117); Anion Gap 6 (5-15); BUN 7 mg/dL (7-18); BUN/Creat Ratio 9.4 RATIO (10-20); Calcium,Total 8.7 mg/dL (8.5-10.1); Chloride 103 mmol/L (98-107); Cholesterol 156 mg/dL (200); Creatinine, Serum 0.75 mg/dL (0.70-1.30); EST Glomerular Filtration Rate 115 mL/min (>60); Est Glom Filt Rate - Afr Amer 139 mL/min (>60); Glucose 123 mg/dL (74-106); High Density Lipoprotein 57 mg/dL; Protein, Total 7.8 g/dL (6.4-8.2); Sodium Level 137 mmol/L (136-145); Triglycerides 61 mg/dL; Very Low Density Lipoprotein 12 mg/dL (5-40)
== END | disposition home or self-care (01) ==
LOC: BIMLAB 11:24
PROVIDERS: PCP Family Medicine; Visit Provider Family Medicine
DX: I10 Essential (primary) hypertension (principal); I21.4 Non-ST elevation (NSTEMI) myocardial infarction
CPT/HCPCS: 36415; 80053; 80061

== ENCOUNTER 2025-02-08 01:00 | Emergency (ER) | payer MEDICARE, SELFPAY ==
[2025-02-08 01:01] VITALS: BP 162/86; PULSE 67; RESP 18; TEMP 36.4; O2SAT 99; BMI 28.7
--- OUTSIDE RECORDS SUMMARY | 2025-02-08 01:40 | XMS RPT_ITS | CCD ---
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 Jaxson Crowe Primary Care Provider [phone] Dr. Jaxson Crowe Attending Provider [phone] Dr. Jaxson Crowe Referring Provider [phone] Dr. Mina Mcadams Attending Provider [phone] Neal Flowers Attending Provider Dr. Neal Flowers Other Provider [phone] Jaxson Crowe Primary Care Provider [phone] Dr. Jaxson Crowe Attending Provider [phone] Jaxson Crowe Referring Provider [phone] DANIELA Graves Attending Provider [phone] Dr. Jaxson Crowe DO Primary Care Provider Dr. Jaxson Crowe DO Attending Provider [phone] Dr. Jaxson Crowe DO Referring Provider [phone] Jaxson Crowe Referring Unavailable Sebastien, Jaxson R Primary Care Unavailable Jaxson Crowe R Attending Unavailable Jaxson Crowe R Attending Unavailable Sebastien, Jaxson R Referring Unavailable Sebastien, Jaxson R Primary Care Unavailable Sebastien, Jaxson R Primary Care Unavailable Jaxson Crowe R Attending Unavailable Jaxson Crowe Primary Care Unavailable Mina Mcadams Attending Unavailable Mina Mcadams Referring Unavailable Sebastien, Jaxson R Referring Unavailable Brown, Jaxson R Primary Care Unavailable BrownJaxson R Attending Unavailable Allergies Allergy Classification Reported Allergen(s) Allergy Type Date of Onset Reaction(s) Facility (3 sources) Lisinopril Drug Allergy 12-24-2022 cough [facility] (1 source) Lisinopril Drug Allergy 01-01-2025 [facility] Repository Medications Current Medications Medication Drug Class(es) Dates Sig (Normalized) Sig (Original) amLODIPine 5 mg oral tablet (20 sources) Dihydropyridine Calcium Channel Karely Start: 02-21-2018 End: 01-01-2025 take 1 tablet by mouth once daily Amlodipine 5 mg tablet Active 5 mg PO DAILY 90 2 January 01, 2025 1:27pm aspirin 325 mg oral tablet (5 sources) Platelet Aggregation Inhibitor, Nonsteroidal Anti-inflammatory Drug Start: 04-14-2023 Aspirin 325 mg tablet Active mg PO April 14, 2023 1:00am Start: 04-14-2023 Aspirin Active MG PO April 14, 2023 12:00am Start: 11-23-2021 End: 11-23-2021 take 1 capsule by mouth once daily Aspirin 81 mg capsule Discontinued 81 mg PO DAILY November 23, 2021 12:00am November 23, 2021 8:28am atorvastatin 40 mg oral tablet (9 sources) HMG-CoA Reductase Inhibitor Start: 04-14-2023 End: 01-01-2025 take 1 tablet by mouth once daily Atorvastatin 40 mg tablet Active 40 mg PO DAILY 90 January 01, 2025 1:27pm Start: 04-14-2023 Atorvastatin A ctive MG PO April 14, 2023 12:00am Start: 11-23-2021 End: 11-23-2021 take 1 tablet by mouth at bedtime Atorvastatin 80 mg tablet Discontinued 80 mg PO AT BEDTIME November 23, 2021 12:00am November 23, 2021 8:31am 24 hr metFORMIN hydrochloride 500 mg extended release oral tablet (20 sources) Biguanide Start: 07-07-2022 End: 01-01-2025 take 1 tablet by mouth twice daily Metformin 500 mg tablet extended release 24 hr Active 500 mg PO TWICE A DAY 180 January 01, 2025 1:26pm Start: 12-20-2019 End: 07-07-2022 take 1 tablet by mouth once daily Metformin 500 mg tablet extended release 24 hr Discontinued 500 mg PO DAILY 90 March 29, 2022 4:13pm July 07, 2022 5:51pm metoprolol tartrate 25 mg oral tablet (8 sources) beta-Adrenergic Karely Start: 04-14-2023 End: 01-01-2025 take 1 tablet by mouth twice daily Metoprolol Tartrate 25 mg tablet Active 25 mg PO TWICE A DAY 180 January 01, 2025 1:26pm Start: 04-14-2023 Metoprolol Tar trate Active MG PO April 14, 2023 12:00am tiZANidine 4 mg oral capsule (20 sources) Central alpha-2 Adrenergic Agonist Start: 05-25-2022 End: 07-18-2024 take 2 capsules by mouth at bedtime as needed for pain Tizanidine 4 mg capsule Active 8 mg PO AT BEDTIME as needed for low back pain 60 July 18, 2024 4:20pm Start: 11-23-2021 End: 05-25-2022 take 4-8 mg by mouth at bedtime as needed for pain Tizanidine 4 mg capsule Discontinued 4 - 8 mg PO AT BEDTIME as needed for low back pain 60 6 November 23, 2021 8:39am May 25, 2022 11:03am Start: 04-30-2021 End: 11-23-2021 take 2 capsules by mouth at bedtime as needed for pain Tizanidine 4 mg capsule Discontinued 8 mg PO AT BEDTIME as needed for low back pain 60 2 August 27, 2021 9:21am November 23, 2021 8:41am Start: 04-30-2021 End: 04-18-2023 take 8 mg by mouth at bedtime Tizanidine Active 8 MG P O AT BEDTIME 60 April 18, 2023 4:59pm traMADol hydrochloride 50 mg oral tablet (7 sources) Opioid Agonist Start: 07-12-2023 take 1 tablet by mouth every six hours as needed for pain Tramadol 50 mg tablet Active 50 mg PO EVERY 6 HOURS as needed for pain 60 0 July 12, 2023 1:00am Start: 10-21-2020 End: 01-29-2021 take 1 tablet by mouth every six hours as needed for pain Tramadol 50 mg tablet Discontinued 50 mg PO EVERY 6 HOURS as needed for pain 30 0 January 12, 2021 3:32pm January 29, 2021 10:56am Completed/Discontinued Medications Medication Drug Class(es) Dates Sig (Normalized) Sig (Original) acetaminophen 325 mg / HYDROcodone bitartrate 5 mg oral tablet (20 sources) Opioid Agonist Start: 03-05-2021 End: 03-19-2021 Hydrocodone-Acetami nophen 5-325 mg tablet Discontinued 1 {tbl} PO EVERY 6 HOURS as needed for pain 60 14 0 March 05, 2021 March 18, 2021 12:00am March 19, 2021 12:01am Decreased range of motion of right shoulder Stiffness of right shoulder, not elsewhere classified Start: 03-05-2021 End: 03-19-2021 take 1 tablet by mouth every six hours Hydrocodone-Acetaminophen Discontinued 1 TABLET PO EVERY 6 HOURS 60 14 March 05, 2021 March 18, 2021 11:01pm Start: 08-26-2017 End: 05-30-2019 Hydrocodone-Acetaminophen 5- 325 mg tablet Discontinued 1 {tbl} PO EVERY 6 HOURS as needed for pain 90 0 August 22, 2018 May 30, 2019 2:04pm Start: 08-26-2017 End: 05-30-2019 take 1 tablet by mouth every six hours Hydrocodone-Acetaminophen Discontinued 1 TABLET PO EVERY 6 HOURS 120 September 28, 2017 November 22, 2017 10:01am Start: 08-23-2017 End: 08-23-2017 Hydrocodone-Acetaminophen 5- 325 mg tablet Discontinued 1 {tbl} PO EVERY 6 HOURS 0 August 23, 2017 12:00am August 23, 2017 11:24am Start: 08-23-2017 End: 08-23-2017 take 1 tablet by mouth every six hours Hydrocodone-Acetaminophen Discontinued 1 TABLET PO EVERY 6 HOURS August 22, 2017 11:00pm August 23, 2017 10:24am acetaminophen 325 mg / oxyCODONE hydrochloride 5 mg oral tablet (3 sources) Opioid Agonist Start: 10-09-2020 End: 10-17-2020 Oxycodone-Acetaminophen (Percocet) 5-325 mg tablet Discontinued 1 {tbl} PO EVERY 6 HOURS as needed for pain 20 5 0 October 09, 2020 October 17, 2020 2:20pm Spinal stenosis at L4-L5 level Spinal stenosis, lumbar region without neurogenic claudication [id number] actuat albuterol 0.09 mg/actuat metered dose inhaler (3 sources) beta2-Adrenergi c Agonist Start: 11-23-2021 End: 11-23-2021 Albuterol Sulfate 90 mcg/actuation HFA aerosol inhaler Discontinued 2 NMA INHALATION EVERY 6 HOURS as needed November 23, 2021 12:00am November 23, 2021 8:28am Start: 11-23-2021 End: 11-23-2021 take 1 puff(s) by inhalation every six hours Albuterol Sulfate Discontinued 2 PUFF INHALATION EVERY 6 HOURS November 22, 2021 11:00pm November 23, 2021 7:28am baclofen 20 mg oral tablet (18 sources) gamma-Aminobutyric Acid-ergic Agonist Start: 06-30-2021 End: 11-23-2021 take 1 tablet by mouth once daily in the morning as needed for pain Baclofen 20 mg tablet Discontinued 20 mg PO every day in the morning and in the evening as needed for muscle pain/spasm 60 2 August 27, 2021 9:21am November 23, 2021 8:13am Start: 12-29-2020 End: 04-30-2021 take 1 tablet by mouth three times daily as needed for pain Baclofen 20 mg tablet Discontinued 20 mg PO THREE TIMES A DAY as needed for muscle pain/spasm 90 1 March 30, 2021 12:37pm April 30, 2021 11:17am Start: 10-27-2020 End: 12-29-2020 take 1 tablet by mouth three times daily as needed for pain Baclofen 10 mg tablet Discontinued 10 mg PO THREE TIMES A DAY as needed for muscle pain/spasm 90 2 October 27, 2020 12:00am December 29, 2020 1:43pm carvedilol 6.25 mg oral tablet (3 sources) alpha-Adrenergic Karely, beta-Adrenergic Karely Start: 11-23-2021 End: 11-23-2021 take 1 tablet by mouth twice daily at mealtime Carvedilol 6.25 mg tablet Discontinued 6.25 mg PO TWICE A DAY November 23, 2021 12:00am November 23, 2021 8:30am must administer with a meal/food clopidogrel 75 mg oral tablet (8 sources) [id number] Platelet Inhibitor Start: 04-14-2023 End: 01-01-2025 take 1 tablet by mouth once daily Clopidogrel 75 mg tablet Discontinued 75 mg PO DAILY 60 2 October 03, 2024 10:43am January 01, 2025 1:26pm Start: 04-14-2023 Clopidogrel Ac tive MG PO April 14, 2023 12:00am Start: 11-23-2021 End: 11-23-2021 take 1 tablet by mouth once daily Clopidogrel 75 mg tablet Discontinued 75 mg PO DAILY November 23, 2021 12:00am November 23, 2021 8:30am dapagliflozin 10 mg oral tablet (3 sources) Sodium-Glucose Cotransporter 2 Inhibitor Start: 11-23-2021 End: 11-23-2021 take 1 tablet by mouth once daily Dapagliflozin Propanediol (Farxiga) 10 mg tablet Discontinued 10 mg PO DAILY November 23, 2021 12:00am November 23, 2021 8:30am diclofenac sodium 75 mg delayed release oral tablet (20 sources) Nonsteroidal Anti-inflammatory Drug Start: 05-25-2022 End: 07-18-2023 take 1 tablet by mouth twice daily as needed for pain Diclofenac Sodium 75 mg tablet,delayed release (DR/EC) Discontinued 75 mg PO TWICE A DAY as needed for pain 60 9 January 31, 2023 5:41pm July 18, 2023 9:51am Start: 06-30-2021 End: 11-23-2021 take 1 tablet by mouth twice daily as needed for pain Diclofenac Sodium 75 mg tablet,delayed release (DR/EC) Discontinued 75 mg PO TWICE A DAY as needed for pain 60 2 August 27, 2021 9:21am November 23, 2021 8:14am Start: 12-29-2020 End: 04-30-2021 take 1 tablet by mouth twice daily as needed for pain Diclofenac Sodium 75 mg tablet,delayed release (DR/EC) Discontinued 75 mg PO TWICE A DAY as needed for pain 60 1 March 30, 2021 12:37pm April 30, 2021 11:17am flurbiprofen 100 mg oral tablet (3 sources) Nonsteroidal Anti-inflammatory Drug Start: 10-27-2020 End: 12-29-2020 take 1 tablet by mouth three times daily as needed for pain Flurbiprofen 100 mg tablet Discontinued 100 mg PO THREE TIMES A DAY as needed for pain 90 2 October 27, 2020 12:00am December 29, 2020 1:43pm furosemide 20 mg oral tablet (3 sources) Loop Diuretic Start: 11-23-2021 End: 11-23-2021 take 1 tablet by mouth twice daily Furosemide 20 mg tablet Discontinued 20 mg PO TWICE A DAY November 23, 2021 12:00am November 23, 2021 8:29am glipiZIDE 5 mg oral tablet (12 sources) Sulfonylurea Start: 03-05-2021 End: 06-30-2021 take 1 tablet by mouth twice daily Glipizide 5 mg tablet Discontinued 5 mg PO TWICE A DAY 60 3 March 05, 2021 11:50am June 30, 2021 9:47am Start: 10-27-2020 End: 03-05-2021 take 1 tablet by mouth once daily Glipizide 5 mg tablet Discontinued 5 mg PO DAILY October 27, 2020 12:00am March 05, 2021 11:54am Start: 08-19-2020 End: 10-27-2020 take 1 tablet by mouth once daily Glipizide 2.5 mg tablet extended release 24hr Discontinued 2.5 mg PO DAILY 60 0 August 19, 2020 12:00am October 27, 2020 10:09am Start: 07-01-2020 End: 08-19-2020 take 1 tablet by mouth once daily Glipizide 5 mg tablet extended release 24hr Discontinued 5 mg PO DAILY 90 July 01, 2020 1:00am August 19, 2020 10:43am ibuprofen 400 mg oral tablet (3 sources) Nonsteroidal Anti-inflammatory Drug Start: 10-09-2020 End: 10-17-2020 take 1 tablet by mouth twice daily Ibuprofen 400 mg Tablet Discontinued 400 mg PO TWICE A DAY October 09, 2020 12:00am October 17, 2020 2:20pm lisinopril 2.5 mg oral tablet (3 sources) Angiotensin Converting Enzyme Inhibitor Start: 11-23-2021 End: 11-23-2021 take 1 tablet by mouth once daily Lisinopril 2.5 mg tablet Discontinued 2.5 mg PO DAILY November 23, 2021 12:00am November 23, 2021 8:30am meloxicam 15 mg oral tablet (6 sources) Nonsteroidal Anti-inflammatory Drug Start: 02-21-2018 End: 08-22-2018 take 1 tablet by mouth once daily Meloxicam 15 mg tablet Discontinued 15 mg PO DAILY 90 February 21, 2018 11:26am August 22, 2018 1:58pm methylPREDNISolone 4 mg oral tablet (3 sources) Corticosteroid Start: 01-29-2021 End: 03-05-2021 take 1 tablet by mouth once Methylprednisolone 4 mg tablets,dose pack Discontinued 4 mg PO per package directions January 29, 2021 12:00am March 05, 2021 11:40am montelukast 10 mg oral tablet (3 sources) Leukotriene Receptor Antagonist Start: 11-23-2021 End: 11-23-2021 take 1 tablet by mouth at bedtime Montelukast 10 mg tablet Discontinued 10 mg PO AT BEDTIME November 23, 2021 12:00am November 23, 2021 8:30am nabumetone 500 mg oral tablet (3 sources) Nonsteroidal Anti-inflammatory Drug Start: 04-30-2021 End: 06-30-2021 take 1 tablet by mouth twice daily as needed for pain Nabumetone 500 mg tablet Discontinued 1000 mg PO TWICE A DAY as needed for low back pain 120 2 April 30, 2021 1:00am June 30, 2021 9:49am Start: 04-30-2021 End: 06-30-2021 take 1000 mg by mouth twice daily Nabumetone Discontinued 1000 MG PO TWICE A DAY 120 April 30, 2021 12:00am June 30, 2021 8:49am naproxen 500 mg oral tablet (3 sources) Nonsteroidal Anti-inflammatory Drug Start: 10-09-2020 End: 10-17-2020 take 1 tablet by mouth twice daily Naproxen 500 MG tablet Discontinued 500 mg PO TWICE A DAY 14 October 09, 2020 12:00am October 17, 2020 2:19pm Tiotropium-Olod aterol (3 sources) Anticholinergic, beta2-Adrenergic Agonist Start: 11-23-2021 End: 11-23-2021 Tiotropium-Olodate rol (Stiolto Respimat) 2.5-2.5 mcg/actuation mist Discontinued 2 NMA INHALATION DAILY November 23, 2021 12:00am November 23, 2021 8:29am Start: 11-23-2021 End: 11-23-2021 Tiotropium-Olodaterol (Stiol to Respimat) 2.5-2.5 mcg/actuation mist Discontinued 2 PUFF INHALATION DAILY November 22, 2021 11:00pm November 23, 2021 7:29am Start: 11-23-2021 End: 11-23-2021 Tiotropium-Olodaterol (Stiol to Respimat) 2.5-2.5 mcg/actuation mist Discontinued 2 PUFF INHALATION DAILY November 23, 2021 12:00am November 23, 2021 8:29am ondansetron 4 mg disintegrating oral tablet (3 sources) Serotonin-3 Receptor Antagonist Start: 10-09-2020 End: 10-17-2020 take 1 tablet by mouth every eight hours as needed for nausea and vomiting Ondansetron 4 mg tablet,disintegrating Discontinued 4 mg PO Q8H as needed for nausea and vomiting October 09, 2020 12:00am October 17, 2020 2:19pm pantoprazole 40 mg delayed release oral tablet (4 sources) Proton Pump Inhibitor Start: 01-11-2023 End: 10-03-2024 take 1 tablet by mouth once daily Pantoprazole 40 mg tablet,delayed release (DR/EC) Discontinued 40 mg PO DAILY February 16, 2023 4:05pm October 03, 2024 10:44am sertraline 100 mg oral tablet (3 sources) Serotonin Reuptake Inhibitor Start: 11-23-2021 End: 11-23-2021 take 1 tablet by mouth once daily Sertraline (Zoloft) 100 mg tablet Discontinued 100 mg PO DAILY November 23, 2021 12:00am November 23, 2021 8:29am Problems Active Problems Problem Classification Problem Date Documented Da te Episodic/Chronic Abdominal pain (3 sources) Indigestion; Translations: [Epigastric pain] 01-11-2023 Episodic Acute myocardial infarction (3 sources) Myocardial infarction; Translations: [Non-ST elevation (NSTEMI) myocardial infarction] Onset: 01-01-2025 05-12-2023 Chronic Diabetes mellitus without complication (9 sources) Diabetes mellitus; Translations: [Type 2 diabetes mellitus without complications] Onset: 01-01-2025 08-22-2018 Chronic Essential hypertension (8 sources) Hypertensive disorder; Translations: [Essential (primary) hypertension] Onset: 01-01-2025 12-21-2022 Chronic Gastrointestinal hemorrhage (4 sources) Hematochezia; Translations: [Melena] 10-06-2022 Episodic Osteoarthritis (6 sources) Degenerative joint disease of shoulder region; Translations: [Primary osteoarthritis, unspecified shoulder] 08-25-2022 Chronic Other connective tissue disease (4 sources) Triggering of digit; Translations: [Trigger finger, right ring finger] 05-25-2022 Episodic Other connective tissue disease (3 sources) Muscle pain; Translations: [Myalgia, other site] 04-08-2021 Episodic Other lower respiratory disease (2 sources) Rib pain; Translations: [Pleurodynia] 04-28-2023 Episodic Other lower respiratory disease (1 source) Pleurodynia; Translations: [Chest pain, unspecified] 04-28-2023 Episodic Other nervous system disorders (3 sources) Neuropathy; Translations: [Polyneuropathy, unspecified] 08-23-2017 Chronic Other non-traumatic joint disorders (3 sources) Decreased range of shoulder movement; Translations: [Stiffness of right shoulder, not elsewhere classified] 08-27-2021 Episodic Pleurisy; pneumothorax; pulmonary collapse (4 sources) Pleural effusion; Translations: [Pleural effusion, not elsewhere classified] 04-14-2023 Episodic Residual codes; unclassified (3 sources) Edema of lower extremity; Translations: [Localized edema] 12-20-2019 Episodic Residual codes; unclassified (1 source) Insomnia; Translations: [Insomnia, unspecified] 07-18-2024 Episodic Spondylosis; intervertebral disc disorders; other back problems (20 sources) Back problem; Translations: [Dorsopathy, unspecified] Onset: 06-19-2024 08-23-2017 Episodic Unclassified (1 source) Low back pain, unspecified; Translations: [Low back pain, unspecified] Onset: 08-13-2024 Past or Other Problems Problem Classification Problem Date Documented Da te Episodic/Chronic Coronary atherosclerosis and other heart disease (2 sources) Presence of aortocoronary bypass graft; Translations: [Aortocoronary bypass status] Onset: 06-19-2024 04-14-2023 Episodic Other connective tissue disease (1 source) Trigger finger, left index finger; Translations: [Trigger finger, left index finger] Onset: 08-13-2024 Episodic Residual codes; unclassified (1 source) Insomnia, unspecified; Translations: [Insomnia, unspecified] Onset: 08-13-2024 Episodic Results Test Name Value Interpretation Reference Range Facility Internal Medicine Office Vis iton 01-01-2025 Internal Medicine Office Visit [facility] [address] [place], [place] [id number] OFFICE VISIT Date of Service: 01/01/25 MR#: [id number] Acct: [id number] Name: TIMOTEO REYES Rep #: [id number] : 1965 Provider: Dr. Jaxson parry DO Age/Sex: 59/M [place] [facility]: Signed Intake Vital Signs 09/18/24 13:05 01/01/25 13:09 Height 5 ft 8 in 5 ft 8 in Weight: 190 lb 180 lb BMI 28.8 27.3 BP 117/70 130/72 H Blood Pressure Location Lt brachial Lt brachial Position Sitting Sitting Respiration 16 16 Pulse 81 80 Pulse Source Monitor Monitor Temp 97.8 F 97.2 F L Temp Source Temporal Temporal Pulse Oximetry (%) 98 99 Oxygen Delivery Method room air room air Intake Visit Reasons: 3 M FU Chief Complaint: f/u Supervisor Shearing Required: No Accompanied by: Self Is patient in pain?: No Allergies lisinopril Adverse Reaction (Severe, Verified 01/01/25 13:08) cough Medications ???Medication ???Instructions ???Recorded ???Confirmed ???Type aspirin 325 mg tablet mg PO 04/14/23 01/01/25 History tramadol 50 mg tablet 50 mg PO Q6H PRN pain #60 tabs 01/01/25 Rx tizanidine 4 mg capsule 8 mg (2 x 4 mg) PO QHS PRN low 10/0701/01/25 Rx back pain #60 caps amlodipine 5 mg tablet 5 mg PO DAILY #90 tabs 01/01/25 Rx atorvastatin 40 mg tablet 40 mg PO DAILY #90 tabs 01/01/25 0 01/01/25 Rx metformin 500 mg tablet,extended 500 mg PO BID #180 tabs 01/01/25 0 01/01/25 Rx release 24 hr metoprolol tartrate 25 mg tablet 25 mg PO BID #180 tabs 01/01/25 Rx PFSH Medical History Wears partial dentures Wears glasses Alcohol use History of steroid therapy Arthritis Kidney stone Back pain Injury of head and neck History of GI bleed Former smoker History of pain when walking Osteoarthritis of shoulder Preoperative clearance Cervical spinal stenosis Neuropathy Hypertension Diabetes Back problem Surgical History History of surgery on wrist History of total replacement of right shoulder joint History of shoulder surgery History of uvulopalatopharyngoplasty History of appendectomy History of back surgery History of carpal tunnel surgery of right wrist History of carpal tunnel surgery of left wrist Family History Grandfather Brain cancer Father Myocardial infarction Social History household members: children housing: house Smoking Status: Former smoker pack-years: 5 how long ago did patient quit smokin years ago alcohol intake: current alcohol intake frequency: a few times a week Alcohol type: beer details: Social Drinker substance use type: does not use what type of physical activity do you participate in: none do you feel safe at home: Yes HPI HPI Chief Complaint: f/u Details: TIMOTEO REYES, is a 59 M who presents to the office today for a recheck visit. He is planning to append his life and buy an RV and hit the road and not come back anymore. He says he is going to stop taking all of his medicine when he runs out and what ever time he has left he has left. He sees too many people which is sit around and do nothing and he is going to go and hit the road. He asked me how long I thought he had and I said I think he is got a lot of years even if he does not take medicine but certainly he will shorten his life span significantly by going off medications. ROS Const Constitutional: No body ache, excessive sweating, fatigue, fever(s), frequent falls, headache(s), snoring, weakness, weight change, sleep problems or change in appetite Eyes Eyes: No blurry vision, change in vision, eye pain or Light sensitivity ENT ENT: No abnormal hearing, ear or mastoid pain, tinnitus, nasal congestion, headache(s), neck pain or sore throat Resp Respiratory: No cough, shortness of breath, snoring or wheezing Cardio Cardiology: No chest pain at rest, chest pain with exertion, excessive sweating, shortness of breath, dyspnea on exertion, lightheadedness, orthopnea or palpitations Gastro GI: No abdominal pain, change in bowel habits, constipation, cramping, diarrhea, nausea/dyspepsia or vomiting Genitourinary Male: No burning urination, painful urination, urinary incontinence, urinary frequency or blood in urine Musc Musculoskeletal: No abnormal gait, joint pain, back pain, limited range of motion, neck pain, numbness, stiffness, tingling or Arthritis Skin Skin: No dry skin, redness, lesions, itchy eyes, rash or wounds Neuro Neurology: No abnormal gait, abnormal hearing, abnormal speech, dizziness, weakness, frequent falls, headache(s), memory loss, n (more content not included)... Normal [facility] Internal Medicine Office Vis iton 09-18-2024 Internal Medicine Office Visit [facility] [address] [place] [address] [place] [address] OFFICE VISIT Date of Service: 09/18/24 MR#: [id number] Acct: [id number] Name: TIMOTEO REYES Rep #: [id number] : 1965 Provider: Dr. Jaxson parry, DO Age/Sex: 59/M [place] [facility] [place] Status: Signed Intake Vital Signs 06/19/24 10:58 07/17/24 07:56 09/18/24 13:05 Height 5 ft 8 in 5 ft 8 in 5 ft 8 in Weight: 194 lb 190 lb BMI 29.5 28.8 BP 135/82 H 117/70 Blood Pressure Location Lt brachial Lt brachial Position Sitting Sitting Respiration 16 16 Pulse 70 81 Pulse Source Monitor Monitor Temp 97.2 F L 97.8 F Temp Source Temporal Temporal Pulse Oximetry (%) 98 98 Oxygen Delivery Method room air room air Intake Visit Reasons: 3 m fu Chief Complaint: 6 f/u Supervisor Shearing Required: No Accompanied by: Self Is patient in pain?: No Allergies lisinopril Adverse Reaction (Severe, Verified 09/18/24 12:58) cough Medications ???Medication ???Instructions ???Recorded ???Confirmed ???Type pantoprazole 40 mg tablet,delayed 40 mg PO DAILY #30 tabs 02/16/23 09/18/24 Rx release aspirin 325 mg tablet mg PO 04/14/23 09/18/24 History tramadol 50 mg tablet 50 mg PO Q6H PRN pain #60 tabs 09/18/24 Rx clopidogrel 75 mg tablet 75 mg PO DAILY #60 tabs 12/06/23 0 09/18/24 Rx atorvastatin 40 mg tablet 40 mg PO DAILY #90 tabs 06/12/24 0 09/18/24 Rx metformin 500 mg tablet,extended 500 mg PO BID #180 tabs 06/19/24 0 09/18/24 Rx release 24 hr metoprolol tartrate 25 mg tablet 25 mg PO BID #180 tabs 06/19/24 Rx amlodipine 5 mg tablet 5 mg PO DAILY #90 tabs 07/10/24 Rx tizanidine 4 mg capsule 8 mg (2 x 4 mg) PO QHS PRN low 10/0709/18/24 Rx back pain #60 caps Have you fallen in the past year?: No PFSH Medical History Wears partial dentures Wears glasses Alcohol use History of steroid therapy Arthritis Kidney stone Back pain Injury of head and neck History of GI bleed Former smoker History of pain when walking Osteoarthritis of shoulder Preoperative clearance Cervical spinal stenosis Neuropathy Hypertension Diabetes Back problem Surgical History History of surgery on wrist History of total replacement of right shoulder joint History of shoulder surgery History of uvulopalatopharyngoplasty History of appendectomy History of back surgery History of carpal tunnel surgery of right wrist History of carpal tunnel surgery of left wrist Family History Grandfather Brain cancer Father Myocardial infarction Social History household members: children housing: house Smoking Status: Former smoker pack-years: 5 how long ago did patient quit smokin years ago alcohol intake: current alcohol intake frequency: a few times a week Alcohol type: beer details: Social Drinker substance use type: does not use what type of physical activity do you participate in: none do you feel safe at home: Yes HPI HPI Chief Complaint: 6 f/u Details: TIMOTEO REYES, is a 59 M who presents to the office today for a follow up exam. He uses tramadol on an occasional basis. He has recently had a disability exam but he really cannot use his right arm so was of very incomplete exam. ROS Const Constitutional: No body ache, excessive sweating, fatigue, fever(s), frequent falls, headache(s), snoring, weakness, weight change, sleep problems or change in appetite Eyes Eyes: No blurry vision, change in vision, eye pain or Light sensitivity ENT ENT: No abnormal hearing, ear or mastoid pain, tinnitus, nasal congestion, headache(s), neck pain or sore throat Resp Respiratory: No cough, shortness of breath, snoring or wheezing Cardio Cardiology: No chest pain at rest, chest pain with exertion, excessive sweating, shortness of breath, dyspnea on exertion, lightheadedness, orthopnea or palpitations Gastro GI: No abdominal pain, change in bowel habits, constipation, cramping, diarrhea, nausea/dyspepsia or vomiting Genitourinary Male: No burning urination, painful urination, urinary incontinence, urinary frequency or blood in urine Musc Musculoskeletal: No abnormal gait, joint pain, back pain, limited range of motion, neck pain, numbness, stiffness, tingling or Arthritis Skin Skin: No dry skin, redness, lesions, itchy eyes, rash or wounds Neuro Neurology: No abnormal gait, abnormal hearing, abnormal speech, dizziness, weakness, frequent falls, headache(s), memory loss, numbness or tingling Psych Psychiatric: No anxiety, No change in appetite, No depression, No memory loss and No Th (more content not included)... Normal [facility] Laboratory - Hematology and Cell countsOrdered By: Jaxson Crowe on 09-18-2024 HbA1c (Bld) [Mass fraction] 6.6 % High 4.2-6.3 [facility] Neurology Visit Reporton Neurology Visit Report [facility] [address], [address] [place], [place] [address] OFFICE VISIT Date of Service: 07/17/24 MR#: [id number] Acct: [id number] Name: TIMOTEO REYES Rep #: [id number] : 1965 Provider: Dr. Mina gibbons MD Age/Sex: 58/M [place] [facility] [place] Status: Signed HPI HPI Chief Complaint: 2m f/u Details: Interim History: Timoteo returns for follow-up. He has a history of hypertension and diabetes mellitus. 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 He underwent lumbar surgery in 1990, however this did not result in significant improvement of his symptoms. In 2020, he developed claudication in both lower extremities, which he described as increased numbness and tingling that involves the perianal region and groin and extends to the feet. The claudication diminishes at rest, however he had some bilateral lower extremity radicular pain at rest. Since his injury in 1989, he has had residual weakness in the right lower extremity and, to a lesser degree, in the left lower extremity. He has a right foot drop and his right calf is smaller than the left. He injured his back again in 2011, and on evaluation he was offered dorsal column stimulator placement, however he decided not to pursue this. Records indicate that, since 2018, he has been prescribed short courses of Percocet and tramadol; he preferred not to take narcotics due to some intolerance. Physical therapy (October-November 2020) was not of benefit. His lumbar MRI from August 2020 revealed moderate central canal stenosis from L2-L5, and severe facet arthropathy without significant central canal stenosis at L5-S1; this was not felt to warrant surgery. He has had neurogenic claudication when he ambulates and he also reported numbness in the gluteal region and both feet if he stands for extended periods of time. He had seen a pattern painter, Dr. Ruvalcaba and received lumbar injections and these were of some benefit. Placement of a dorsal column stimulator had been considered. He saw another orthopedic surgeon, and had another lumbar MRI in 2022 and he subsequently underwent another lumbar fusion in February 2024 (anterior lumbar interbody fusion L3-4 and L4-5) and he reports having reduction of his low back pain and near resolution of his lower extremity radicular pain. He now describes having occasional left lower extremity numbness. Bilateral lower extremity EMG/nerve conduction studies were abnormal, revealing electrophysiologic evidence consistent with chronic, bilateral, L5 radiculopathies (more severe on the right); there was no active denervation to suggest ongoing motor axon loss, and no evidence of superimposed peripheral neuropathy or peroneal neuropathy in either the right or left lower extremity. There was decreased activation seen in some right lower extremity muscles, which is of unclear significance (this may be seen in cases of pain, poor effort, or BEAM DOFFER lesions). His B12, CBC, folate, and TSH were normal. His serum free light chains were mildly abnormal; subsequent serum protein electrophoresis, serum immunofixation, and urine immunofixation were normal. Flurbiprofen and nabumetone were not of benefit. Diclofenac was of benefit however this was discontinued following his myocardial infarction in February 2023 for which he underwent a CABG in February 2023. Prior use of baclofen (at a dose of 20 mg 3 times daily) was of some benefit for his low back pain and radicular pain however he stated that resumption of this medication was not recommended following his heart surgery. He is taking tizanidine at bedtime (a daytime dose was sedating) and this is of benefit for his lower extremity muscle cramps and insomnia. Bilateral lumbar trigger point injections administered at this office were not of benefit. Acetaminophen is of benefit. He previously reported that a cervical spine injection had resulted in some transient reduction of his low back pain. He injured his right shoulder at work in 2016 (worker's comp claim), and has had multiple right shoulder surgeries, the last of which was a reverse shoulder replacement performed in September 2023. He had a cervical spine MRI at [facility], which revealed moderate central canal stenosis and moderate bilateral neural foraminal stenosis at C5-6 due to disc and uncovertebral disease, and his orthopedic surgeon, Dr. Ga, believed his cervical spinal stenosis is contribution to his right shoulder and upper extremity symptoms. Surgery of the cervical spine had been offered. The patient denied having neck pain. He has had a several year history of trigger finger pain affecting multiple fingers in his right hand and also fingers in his left hand. A right fourth finger trigger finger corticosteroid injection administered at this office in June 04 (more content not included)... Normal [facility] Comprehensive Metabolic Prof molly 06-19-2024 Albumin [Mass/Vol] 3.8 g/dL Normal 3.2-5.0 [facility] Comment on above: Performed By: #### L 500.4050, L500.4100 #### [facility] [address] [place], [address] Albumin/Globulin [Mass ratio] 1.0 {ratio} Normal 0.9-2.4 [facility] Comment on above: Performed By: #### L 500.4050, L500.4100 #### [facility] [address] [place], [address] ALK P 108 U/L Normal 45-117 [facility] Comment on above: Performed By: #### L 500.4050, L500.4100 #### [facility] [address] [place], [address] ALT [Catalytic activity/Vol] 25 U/L Normal 16-61 [facility] Comment on above: Performed By: #### L 500.4050, L500.4100 #### [facility] [address] [place], [address] AST [Catalytic activity/Vol] 21 U/L Normal 15-37 [facility] Comment on above: Performed By: #### L 500.4050, L500.4100 #### [facility] [address] [place], [address] Bilirubin [Mass/Vol] 0.40 mg/dL Normal 0.20-1.00 [facility] Comment on above: Result Comment: For patients on eltrombopag therapy, use of Dimension [place] TBIL is not recommended. Performed By: #### L 500.4050, L500.4100 #### [facility] [address] [place], [address] BUN/CRE 9.4 RATIO Low 10-20 [facility] Comment on above: Performed By: #### L 500.4050, L500.4100 #### [facility] [address] [place], [address] CA,Total 8.7 mg/dL Normal 8.5-10.1 [facility] Comment on above: Performed By: #### L 500.4050, L500.4100 #### [facility] [address] [place], [address] Chloride [Moles/Vol] 103 mmol/L Normal 98-107 [facility] Comment on above: Performed By: #### L 500.4050, L500.4100 #### [facility] [address] [place], [address] CO2 [Moles/Vol] 28.0 mmol/L Normal 21.0-32.0 [facility] Comment on above: Performed By: #### L 500.4050, L500.4100 #### [facility] [address] [place], [address] Creatinine [Mass/Vol] 0.75 mg/dL Normal 0.70-1.30 [facility] Comment on above: Result Comment: The validity of the calculated GFR GFRAA in patients over 70 years has not been determined. Clinical correlation is essential. Performed By: #### L 500.4050, L500.4100 #### [facility] [address] [place], [address] EST GFR - AA 139 mL/min Normal >60 [facility] Comment on above: Result Comment: Afri can Iranian GFR Calc Performed By: #### L 500.4050, L500.4100 #### [facility] [address] [place], [address] GAP 6 Normal 5-15 [facility] Comment on above: Performed By: #### L 500.4050, L500.4100 #### [facility] [address] [place], [address] GFR/1.73 sq M.predicted among non-blacks MDRD (S/P/Bld) [Vol rate/Area] 115 mL/min/{1.73_m2} Normal >60 [facility] Comment on above: Result Comment: Non- GFR Calc Performed By: #### L 500.4050, L500.4100 #### [facility] [address] [place], [address] Globulin (S) [Mass/Vol] 4.0 g/dL Normal 2.2-4.2 [facility] Comment on above: Performed By: #### L 500.4050, L500.4100 #### [facility] [address] [place], [address] Glucose [Mass/Vol] 123 mg/dL High 74-106 [facility] Comment on above: Result Comment: Fast ing Glucose result from 100 to 125 mg/dL suggests IMPAIRED HOMEOSTASIS per A.D.A. criteria. Performed By: #### L 500.4050, L500.4100 #### [facility] [address] [place], [address] Potassium [Moles/Vol] 4.0 mmol/L Normal 3.5-5.1 [facility] Comment on above: Performed By: #### L 500.4050, L500.4100 #### [facility] [address] [place], [address] Sodium [Moles/Vol] 137 mmol/L Normal 136-145 [facility] Comment on above: Performed By: #### L 500.4050, L500.4100 #### [facility] [address] [place], [address] T PROT 7.8 g/dL Normal 6.4-8.2 [facility] Comment on above: Performed By: #### L 500.4050, L500.4100 #### [facility] [address] [place], [address] Urea nitrogen [Mass/Vol] 7 mg/dL Normal 7-18 [facility] Comment on above: Performed By: #### L 500.4050, L500.4100 #### [facility] [address] [place], [address] Internal Medicine Office Vis iton 06-19-2024 Internal Medicine Office Visit [facility] [address] [place] [address] [place] [address] OFFICE VISIT Date of Service: 06/19/24 MR#: [id number] Acct: [id number] Name: ERICTIMOTEOCAMMY LAW Rep #: [id number] : 1965 Provider: Dr. Jaxson parry, DO Age/Sex: 58/M [place] [facility] [place] Status: Signed Intake Vital Signs 09/27/23 13:25 06/19/24 10:58 Height 5 ft 8.5 in 5 ft 8 in Weight: 195 lb 194 lb BMI 29.2 29.5 BP 114/72 135/82 H Blood Pressure Location Lt brachial Lt brachial Position Sitting Sitting Respiration 14 16 Pulse 73 70 Pulse Source Monitor Monitor Temp 97.7 F L 97.2 F L Temp Source Temporal Temporal Pulse Oximetry (%) 97 98 Oxygen Delivery Method room air room air Intake Visit Reasons: MED FU Chief Complaint: 3 month follow Supervisor Shearing Required: No Accompanied by: Self Is patient in pain?: No Allergies lisinopril Adverse Reaction (Severe, Verified 06/19/24 10:56) cough Medications ???Medication ???Instructions ???Recorded ???Confirmed ???Type pantoprazole 40 mg tablet,delayed 40 mg PO DAILY #30 tabs 02/16/23 06/19/24 Rx release aspirin 325 mg tablet mg PO 04/14/23 06/19/24 History tramadol 50 mg tablet 50 mg PO Q6H PRN pain #60 tabs 06/19/24 Rx clopidogrel 75 mg tablet 75 mg PO DAILY #60 tabs 12/06/23 0 06/19/24 Rx amlodipine 5 mg tablet 5 mg PO DAILY #90 tabs 04/17/24 Rx tizanidine 4 mg capsule 8 mg (2 x 4 mg) PO QHS PRN low 03/0806/19/24 Rx back pain #60 caps atorvastatin 40 mg tablet 40 mg PO DAILY #90 tabs 06/12/24 0 06/19/24 Rx metformin 500 mg tablet,extended 500 mg PO BID #180 tabs 06/19/24 0 06/19/24 Rx release 24 hr metoprolol tartrate 25 mg tablet 25 mg PO BID #180 tabs 06/19/24 Rx Have you fallen in the past year?: No PFSH Medical History Wears partial dentures Wears glasses Alcohol use History of steroid therapy Arthritis Kidney stone Back pain Injury of head and neck History of GI bleed Former smoker History of pain when walking Osteoarthritis of shoulder Preoperative clearance Cervical spinal stenosis Neuropathy Hypertension Diabetes Back problem Surgical History History of surgery on wrist History of total replacement of right shoulder joint History of shoulder surgery History of uvulopalatopharyngoplasty History of appendectomy History of back surgery History of carpal tunnel surgery of right wrist History of carpal tunnel surgery of left wrist Family History Grandfather Brain cancer Father Myocardial infarction Social History household members: children housing: house Smoking Status: Former smoker pack-years: 5 how long ago did patient quit smokin years ago alcohol intake: current alcohol intake frequency: a few times a week Alcohol type: beer details: Social Drinker substance use type: does not use what type of physical activity do you participate in: none do you feel safe at home: Yes HPI HPI Chief Complaint: 3 month follow Details: TIMOTEO REYES, is a 58 M who presents to the office today for a follow-up on his diabetes. He voices no new complaints, however he is doing much better since he has had his back surgery and is radicular pain is pretty much gone. ROS Const Constitutional: No body ache, excessive sweating, fatigue, fever(s), frequent falls, headache(s), snoring, weakness, weight change, sleep problems or change in appetite Eyes Eyes: No blurry vision, change in vision, eye pain or Light sensitivity ENT ENT: No abnormal hearing, ear or mastoid pain, tinnitus, nasal congestion, headache(s), neck pain or sore throat Resp Respiratory: No cough, shortness of breath, snoring or wheezing Cardio Cardiology: No chest pain at rest, chest pain with exertion, excessive sweating, shortness of breath, dyspnea on exertion, lightheadedness, orthopnea or palpitations Gastro GI: No abdominal pain, change in bowel habits, constipation, cramping, diarrhea, nausea/dyspepsia or vomiting Genitourinary Male: No burning urination, painful urination, urinary incontinence, urinary frequency or blood in urine Musc Musculoskeletal: No abnormal gait, joint pain, back pain, limited range of motion, neck pain, numbness, stiffness, tingling or Arthritis Skin Skin: No dry skin, redness, lesions, itchy eyes, rash or wounds Neuro Neurology: No abnormal gait, abnormal hearing, abnormal speech, dizziness, weakness, frequent falls, headache(s), memory loss, numbness or tingling Psych Psychiatric: No anxiety, No change in appetite, No depression, No memory loss and No Thoughts (more content not included)... Normal [facility] Lipid Profileon 06-19-2024 Cholesterol [Mass/Vol] 156 mg/dL Normal 200 [facility] Comment on above: Result Comment: <200 mg/dL Desirable 200-240 mg/dL Borderline >240 mg/dL High Risk Performed By: #### L 500.4050, L500.4100 #### [facility] [address] [place], [address] Cholesterol in HDL [Mass/Vol] 57 mg/dL Normal [facility] Comment on above: Result Comment: The drugs N-Acetylcysteine and Metamizole may falsely depress this assay. Reference Range HDL <40 mg/dL Low HDL Cholesterol HDL >or= 60 mg/dL High HDL Cholesterol Performed By: #### L 500.4050, L500.4100 #### [facility] [address] [place], [address] Cholesterol in LDL [Mass/Vol] 87 mg/dL Normal 0-130 [facility] Comment on above: Performed By: #### L 500.4050, L500.4100 #### [facility] [address] [place], [place], [address] Cholesterol in VLDL [Mass/Vol] 12 mg/dL Normal 5-40 [facility] Comment on above: Performed By: #### L 500.4050, L500.4100 #### [facility] [address] [place], [address] Triglyceride [Mass/Vol] 61 mg/dL Normal [facility] Comment on above: Result Comment: The drugs N-Acetylcysteine and Metamizole may falsely depress this assay. Serum Triglycerides Reference Interval Normal <150 mg/dL Borderline high 150 - 199 mg/dL High 200 - 499 mg/dL Very High > or = 500 mg/dL Performed By: #### L 500.4050, L500.4100 #### [facility] [address] [place], [place], [address] Laboratory - Hematology and Cell countson 04-14-2023 HbA1c (Bld) [Mass fraction] 6.5 % 4.2-6.3 [facility] Laboratory - Hematology and Cell countson 01-11-2023 HbA1c (Bld) [Mass fraction] 7.5 % 4.2-6.3 [facility] Glucose Glucometer (dC) [M ass/Vol]Ordered By: Neal Flowers on 12-24-2022 Glucose [Mass/Vol] 156 mg/dL 74-106 [facility] Comment on above: MANAGEMENT OF PATIEN T CARE PER NURSING PROTOCOL Vital Signs Date Time Vital Sign Value Performing Clinician Alberto rios 01-01-2025 13:09-0400 Body height 172.[address] Jaxson Crowe DO Work Phone: [facility] 01-01-2025 13:09-0400 Body mass index (BMI) [Ratio] 27.3 kg/m2 Dr. Jaxson Crowe DO Work Phone: [facility] 01-01-2025 13:09-0400 Body temperature 97.2 [degF] Dr. Jaxson Crowe DO Work Phone: [facility] 01-01-2025 13:09-0400 Body weight 81.[address] Jaxson Crowe DO Work Phone: [facility] 01-01-2025 13:09-0400 Diastolic blood pressure 72 mm[Hg] Dr. Jaxson Crowe DO Work Phone: [facility] 01-01-2025 13:09-0400 Heart rate 80 /min Dr. Jaxson Crowe DO Work Phone: [facility] 01-01-2025 13:09-0400 Respiratory rate 16 /min Dr. Jaxson Crowe DO Work Phone: [facility] 01-01-2025 13:09-0400 SaO2% (BldA) [Mass fraction] 99 % Dr. Jaxson Crowe DO Work Phone: [facility] 01-01-2025 13:09-0400 Systolic blood pressure 130 mm[Hg] Dr. Jaxson Crowe DO Work Phone: [facility] 09-18-2024 13:05-0400 Body mass index (BMI) [Ratio] 28.8 kg/m2 Dr. Jaxson Crowe DO Work Phone: [facility] 09-18-2024 13:05-0400 Body temperature 97.8 [degF] Dr. Jaxson Crowe DO Work Phone: [facility] 09-18-2024 13:05-0400 Body weight 86.[address] Jaxson Crowe DO Work Phone: [facility] 09-18-2024 13:05-0400 Diastolic blood pressure 70 mm[Hg] Dr. Jaxson Crowe DO Work Phone: [facility] 09-18-2024 13:05-0400 Heart rate 81 /min Dr. Jaxson Crowe DO Work Phone: [facility] 09-18-2024 13:05-0400 Respiratory rate 16 /min Dr. Jaxson Crowe DO Work Phone: [facility] 09-18-2024 13:05-0400 SaO2% (BldA) [Mass fraction] 98 % Dr. Jaxson Crowe DO Work Phone: [facility] 09-18-2024 13:05-0400 Systolic blood pressure 117 mm[Hg] Dr. Jaxson Crowe DO Work Phone: [facility] 04-28-2023 14:21-0500 Body height 167.[address] Jaxson Crowe Work Phone: [facility] 04-28-2023 14:21-0500 Body mass index (BMI) [Ratio] 32.8 kg/m2 Dr. Jaxson Crowe Work Phone: [facility] 04-28-2023 14:21-0500 Body temperature 97.6 [degF] Dr. Jaxson Crowe Work Phone: [facility] 04-28-2023 14:21-0500 Body weight 91.[address] Jaxson Crowe Work Phone: [facility] 04-28-2023 14:21-0500 Diastolic blood pressure 80 mm[Hg] Dr. Jaxson Crowe Work Phone: [facility] 04-28-2023 14:21-0500 Heart rate 96 /min Dr. Jaxson Crowe Work Phone: [facility] 04-28-2023 14:21-0500 Respiratory rate 16 /min Dr. Jaxson Crowe Work Phone: [facility] 04-28-2023 14:21-0500 SaO2% (BldA) [Mass fraction] 99 % Dr. Jaxson Crowe Work Phone: [facility] 04-28-2023 14:21-0500 Systolic blood pressure 142 mm[Hg] Dr. Jaxson Crowe Work Phone: [facility] 04-14-2023 12:57-0500 Body mass index (BMI) [Ratio] 31.7 kg/m2 Dr. Jaxson Crowe Work Phone: [facility] 04-14-2023 12:57-0500 Body temperature 98.2 [degF] Dr. Jaxson Crowe Work Phone: [facility] 04-14-2023 12:57-0500 Body weight 96.[address] Jaxson Crowe Work Phone: [facility] 04-14-2023 12:57-0500 Diastolic blood pressure 84 mm[Hg] Dr. Jaxson Crowe Work Phone: [facility] 04-14-2023 12:57-0500 Heart rate 89 /min Dr. Jaxson Crowe Work Phone: [facility] 04-14-2023 12:57-0500 Respiratory rate 16 /min Dr. Jaxson Crowe Work Phone: [facility] 04-14-2023 12:57-0500 SaO2% (BldA) [Mass fraction] 98 % Dr. Jaxson Crowe Work Phone: [facility] 04-14-2023 12:57-0500 Systolic blood pressure 144 mm[Hg] Dr. Jaxson Crowe Work Phone: [facility] 01-11-2023 15:57-0400 Body mass index (BMI) [Ratio] 32.6 kg/m2 Dr. Jaxson Crowe Work Phone: [facility] 01-11-2023 15:57-0400 Body temperature 98.1 [degF] Dr. Jaxson Crowe Work Phone: [facility] 01-11-2023 15:57-0400 Body weight [address] Jaxson Crowe Work Phone: [facility] 01-11-2023 15:57-0400 Diastolic blood pressure 92 mm[Hg] Dr. Jaxson Crowe Work Phone: [facility] 01-11-2023 15:57-0400 Heart rate 105 /min Dr. Jaxson Crowe Work Phone: [facility] 01-11-2023 15:57-0400 Respiratory rate 16 /min Dr. Jaxson Crowe Work Phone: [facility] 01-11-2023 15:57-0400 SaO2% (BldA) [Mass fraction] 97 % Dr. Jaxson Crowe Work Phone: [facility] 01-11-2023 15:57-0400 Systolic blood pressure 132 mm[Hg] Dr. Jaxson Crowe Work Phone: [facility] 12-24-2022 08:10-0400 Body temperature 97 [degF] Dr. Jaxson Crowe Work Phone: [facility] 12-24-2022 08:10-0400 Diastolic blood pressure 96 mm[Hg] Dr. Jaxson Crowe Work Phone: [facility] 12-24-2022 08:10-0400 Heart rate 81 /min Dr. Jaxson Crowe Work Phone: [facility] 12-24-2022 08:10-0400 Respiratory rate 16 /min Dr. Jaxson Crowe Work Phone: [facility] 12-24-2022 08:10-0400 SaO2% (BldA) [Mass fraction] 97 % Dr. Jaxson Crowe Work Phone: [facility] 12-24-2022 08:10-0400 Systolic blood pressure 134 mm[Hg] Dr. Jaxson Crowe Work Phone: [facility] 12-24-2022 06:39-0400 Body height 172.[address] Jaxson Crowe Work Phone: [facility] 12-24-2022 06:39-0400 Body mass index (BMI) [Ratio] 32.5 kg/m2 Dr. Jaxson Crowe Work Phone: [facility] 12-24-2022 06:39-0400 Body weight [address] Jaxson Crowe Work Phone: [facility] 12-06-2022 14:28-0400 Body mass index (BMI) [Ratio] 34.2 kg/m2 Dr. Jaxson Crowe Work Phone: [facility] 12-06-2022 14:28-0400 Body temperature 97.3 [degF] Dr. Jaxson Crowe Work Phone: [facility] 12-06-2022 14:28-0400 Body weight 102.[address] Jaxson Crowe Work Phone: [facility] 12-06-2022 14:28-0400 Diastolic blood pressure 92 mm[Hg] Dr. Jaxson Crowe Work Phone: [facility] 12-06-2022 14:28-0400 Heart rate 80 /min Dr. Jaxson Crowe Work Phone: [facility] 12-06-2022 14:28-0400 Respiratory rate 17 /min Dr. Jaxson Crowe Work Phone: [facility] 12-06-2022 14:28-0400 SaO2% (BldA) [Mass fraction] 98 % Dr. Jaxson Crowe Work Phone: [facility] 12-06-2022 14:28-0400 Systolic blood pressure 174 mm[Hg] Dr. Jaxson Crowe Work Phone: [facility] 11-22-2022 08:29-0400 Body mass index (BMI) [Ratio] 33.9 kg/m2 Dr. Jaxson Crowe Work Phone: [facility] 11-22-2022 08:29-0400 Body temperature 98.2 [degF] Dr. Jaxson Crowe Work Phone: [facility] 11-22-2022 08:29-0400 Body weight 102.[address] Jaxson Crowe Work Phone: [facility] 11-22-2022 08:29-0400 Diastolic blood pressure 80 mm[Hg] Dr. Jaxson Crowe Work Phone: [facility] 11-22-2022 08:29-0400 Heart rate 93 /min Dr. Jaxson Crowe Work Phone: [facility] 11-22-2022 08:29-0400 Respiratory rate 17 /min Dr. Jaxson Crowe Work Phone: [facility] 11-22-2022 08:29-0400 SaO2% (BldA) [Mass fraction] 98 % Dr. Jaxson Crowe Work Phone: [facility] 11-22-2022 08:29-0400 Systolic blood pressure 126 mm[Hg] Dr. Jaxson Crowe Work Phone: [facility] 10-06-2022 16:34-0400 Body mass index (BMI) [Ratio] 33.5 kg/m2 Dr. Jaxson Crowe Work Phone: [facility] 10-06-2022 16:34-0400 Body temperature 97.9 [degF] Dr. Jaxson Crowe Work Phone: [facility] 10-06-2022 16:34-0400 Body weight 101.[address] Jaxson Crowe Work Phone: [facility] 10-06-2022 16:34-0400 Diastolic blood pressure 72 mm[Hg] Dr. Jaxsno Crowe Work Phone: [facility] 10-06-2022 16:34-0400 Heart rate 82 /min Dr. Jaxson Crowe Work Phone: [facility] 10-06-2022 16:34-0400 Respiratory rate 12 /min Dr. Jaxson Crowe Work Phone: [facility] 10-06-2022 16:34-0400 SaO2% (BldA) [Mass fraction] 97 % Dr. Jaxson Crowe Work Phone: [facility] 10-06-2022 16:34-0400 Systolic blood pressure 110 mm[Hg] Dr. Jaxson Crowe Work Phone: [facility] Encounters Encounter Date Encounter Type Care Provider Facility Start: 01-01-2025 End: 01-01-[address] Jaxson Fraire DO -[facility] Work Phone: Start: 01-01-2025 End: 01-01-[address] Jaxson Crowe DO Work Phone: [facility] Start: 09-18-2024 End: 09-18-[address] Jaxson Fraire DO [facility] Work Phone: Start: 09-18-2024 End: 09-18-2024 ambulatory Jaxson Crowe Facility:[facility] Start: 07-17-2024 End: 07-17-2024 ambulatory Jaxson Crowe Facility:[facility] Start: 06-19-2024 End: 06-19-2024 ambulatory Jaxson Crowe Facility:[facility] Start: 06-19-2024 End: 06-19-2024 ambulatory Jaxson Crowe Facility:[facility] Start: 04-28-2023 End: 04-28-[address] Jaxson Crowe Work Phone: [facility] Work Phone: Start: 04-28-2023 End: 04-28-[address] Jaxson Crowe Work Phone: [facility] Work Phone: Start: 04-14-2023 End: 04-14-[address] Jaxson Crowe Work Phone: [facility] Work Phone: Start: 01-11-2023 End: 01-11-[address] Jaxson Crowe Work Phone: [facility] Work Phone: Start: 12-24-2022 Non-patient / Non-visit Dr. Szymanski Work Phone: [facility] Start: 12-24-2022 End: 12-24-2022 Admission to same day surgery center Dr. Jaxson Crowe Work Phone: [facility] Work Phone: Start: 12-24-2022 End: 12-24-[address] Jaxson Crowe Work Phone: [facility] Work Phone: Start: 12-06-2022 End: 12-06-[address] Jaxson Crowe Work Phone: [facility] Work Phone: Start: 11-22-2022 End: 11-22-[address] Jaxson Crowe Work Phone: [facility] Work Phone: Start: 10-06-2022 End: 10-06-[address] Jaxson Crowe Work Phone: [facility] Work Phone: Start: 08-25-[address] Jaxson Crowe Work Phone: [facility] Procedures Date Procedure Procedure Detail Performing Clinician Start: 04-28-2023 Plain chest X-ray Dr. Sidney Crowe Work Phone: Start: 04-14-2023 Plain chest X-ray Dr. Sidney Crowe Work Phone: Start: 12-24-[address] Josseline Crowe Work Phone: History of coronary artery bypass grafting S/P CABG x 3 Dr. Jaxson Crowe Work Phone: History of coronary artery bypass grafting S/P CABG x 3 Dr. Jaxson Fraire DO Plan of Treatment Date Care Activity Detail Author Start: 12-24-2022 Patient discharge [facility] Start: 10-06-2022 Patient referral [facility] Work Phone: Colonoscopy [facility] Patient referral [facility] Work Phone: Payers Date Payer Category Payer Self-pay [id number] [id number] Medicare [id number] 2006 Unknown [id number] Unknown [employer] [employer] [id number] Unknown [id number] Unknown [id number] Unknown [id number] Unknown [id number] Unknown [id number] [id number] Social History Date Type Detail Facility Start: 12-21-2022 End: 04-28-2023 Tobacco smoking status NHIS Unknown if ever smoked [facility] Start: 1965 Sex Assigned At Male [facility] Start: 07-18-2023 Tobacco smoking stat us NHIS Ex-smoker (finding) [facility] Goals Date Patient Goal Desired Activity /State Mental Status Date Assessment Result Facility 12-24-2022 Cognitive function Touch/Shaking [facility] Work Phone: 12-24-2022 Cognitive function Patient Orien tation Person;Place;Time [facility] Work Phone: Progress note 01-01-2025 Note Date & Type Note Facility 01-01-2025 Progress note [facility] Progress note 01-01-2025 Note Date & Type Note Facility 01-01-2025 Progress note Note Date/Time January 01, 2025 1:39pm [facility] [address] [place] [address] [place] [address] OFFICE VISIT Date of Service: 01/01/25 MR#: [id number] Acct: [id number] Name: TIMOTEO REYES Rep #: [id number] : 1965 Provider: Dr. Donavan Crowe, Age/Sex: 59/M Location: [facility] Status: Signed Intake Vital Signs 09/18/24 13:05 01/01/25 13:09 Height 5 ft 8 in 5 ft 8 in Weight: 190 lb 180 lb BMI 28.8 27.3 BP 117/70 130/72 H Blood Pressure Location Lt brachial Lt brachial Position Sitting Sitting Respiration 16 16 Pulse 81 80 Pulse Source Monitor Monitor Temp 97.8 F 97.2 F L Temp Source Temporal Temporal Pulse Oximetry (%) 98 99 Oxygen Delivery Method room air room air Intake Visit Reasons: 3 M FU Chief Complaint: f/u Supervisor Shearing Required: No Accompanied by: Self Is patient in pain?: No Allergies lisinopril Adverse Reaction (Severe, Verified 01/01/25 13:08) cough Medications ?Medication ?Instructions ?Recorded ?Confirmed ?Type aspirin 325 mg tablet mg PO 04/14/23 01/01/25 Hist ory tramadol 50 mg tablet 50 mg PO Q6H PRN pain #60 ta bs 07/12/23 01/01/25 Rx tizanidine 4 mg capsule 8 mg (2 x 4 mg) PO QHS PRN l ow 07/18/24 01/01/25 Rx back pain #60 caps amlodipine 5 mg tablet 5 mg PO DAILY #90 tabs 01/0101/01/25 Rx atorvastatin 40 mg tablet 40 mg PO DAILY #90 tabs 12/1401/01/25 Rx metformin 500 mg tablet,extended 500 mg PO BID #180 ta bs 01/01/25 01/01/25 Rx release 24 hr metoprolol tartrate 25 mg tablet 25 mg PO BID #180 tab s 01/01/25 01/01/25 Rx PFSH Medical History Wears partial dentures Wears glasses Alcohol use History of steroid therapy Arthritis Kidney stone Back pain Injury of head and neck History of GI bleed Former smoker History of pain when walking Osteoarthritis of shoulder Preoperative clearance Cervical spinal stenosis Neuropathy Hypertension Diabetes Back problem Surgical History History of surgery on wrist History of total replacement of right shoulder joint History of shoulder surgery History of uvulopalatopharyngoplasty History of appendectomy History of back surgery History of carpal tunnel surgery of right wrist History of carpal tunnel surgery of left wrist Family History Grandfather Brain cancer Father Myocardial infarction Social History household members: children housing: house Smoking Status: Former smoker pack-years: 5 how long ago did patient quit smokin years ago alcohol intake: current alcohol intake frequency: a few times a week Alcohol type: beer details: Social Drinker substance use type: does not use what type of physical activity do you participate in: none do you feel safe at home: Yes HPI HPI Chief Complaint: f/u Details: TIMOTEO REYES, is a 59 M who presents to the office today for a recheck visit. He is planning to append his life and buy an RV and hit the road and not come back anymore. He says he is going to stop taking all of his medicine when he runs out and what ever time he has left he has left. He sees too many people which is sit around and do nothing and he is going to go and hit the road. He asked me how long I thought he had and I said I think he is got a lot of years even if he does not take medicine but certainly he will shorten his life span significantly by going off medications. ROS Const Constitutional: No body ache, excessive sweating, fatigue, fever(s), frequent falls, headache(s), snoring, weakness, weight change, sleep problems or change in appetite Eyes Eyes: No blurry vision, change in vision, eye pain or Light sensitivity ENT ENT: No abnormal hearing, ear or mastoid pain, tinnitus, nasal congestion, headache(s), neck pain or sore throat Resp Respiratory: No cough, shortness of breath, snoring or wheezing Cardio Cardiology: No chest pain at rest, chest pain with exertion, excessive sweating,shortness of breath, dyspnea on exertion, lightheadedness, orthopnea or palpitations Gastro GI: No abdominal pain, change in bowel habits, constipation, cramping, diarrhea,nausea/dyspepsia or vomiting Genitourinary Male: No burning urination, painful urination, urinary incontinence, urinary frequency or blood in urine Musc Musculoskeletal: No abnormal gait, joint pain, back pain, limited range of motion, neck pain, numbness, stiffness, tingling or Arthritis Skin Skin: No dry skin, redness, lesions, itchy eyes, rash or wounds Neuro Neurology: No abnormal gait, abnormal hearing, abnormal speech, dizziness, weakness, frequent falls, headache(s), memory loss, numbness or tingling Psych Psychiatric: No anxiety, No change in appetite, No depression, No memory loss and No Thoughts of harming yourself/Others Endo Endocrine: No cold intolerance, excessive sweating, fatigue, flushing, heat intolerance, increased thirst/drinking, increased hunger or weight change Aller/Imm Allergy/Immunologic: No itchy eyes, seasonal allergy symptoms, hives or wheezing Johnathan/Lymp Hematologic/Lymphatic: No easy bleeding, easy bruising or enlarged lymph nodes Results POC A1C POC A1C 6.4 % Last Edit by Elham Dent on 01/01/25 13:33 Coding Level of Care Code Off vis,est,level 3 Diagnoses Type 2 diabetes mellitus without complication, without long-term current use of insulin E11.9 Diabetes mellitus type: type 2 Diabetes mellitus fpc insulin use: without fpc use Diabetes mellitus complication status: without complication Essential hypertension I10 Hypertension type: essential hypertension Spinal stenosis at L4-L5 level M48.061 Non-ST elevated myocardial infarction (non-STEMI) I21.4 Assessment and Plan Assessment and Plan (1) Diabetes: Status: Chronic Qualifiers: Diabetes mellitus type: type 2 Diabetes mellitus manager terminal insulin use:without manager terminal use Diabetes mellitus complication status: without complication Qualified Code(s): E11.9 - Type 2 diabetes mellitus without complications Plan: His hemoglobin A1c is 6.4 showing good diabetic control. (2) Hypertension: Status: Chronic Qualifiers: Hypertension type: essential hypertension Qualified Code(s): I10 - Essential (primary) hypertension Plan: His blood pressure is well-controlled. (3) Spinal stenosis at L4-L5 level: Status: Chronic Plan: His spinal pain remains the same. (4) Non-ST elevated myocardial infarction (non-STEMI): Status: Acute Plan: He has no chest pain or dyspnea. I truly believe that he will do well for several years without medical care but as I told him it will significantly shorten his life span. Orders: Orders POC A1C Today E11.9 - Type 2 diabetes mellitus without complications Medications: Refilled metoprolol tartrate 25 mg PO BID 180 tabs 4RF metformin ER 500 mg PO BID 180 tabs 1RF atorvastatin 40 mg PO DAILY 90 tabs 2RF amlodipine 5 mg PO DAILY 90 tabs 2RF Discontinued clopidogrel Discontinued Reason: Discontinued by PCP/other physicians 75 mg PO DAILY 60tabs 2RF 01/01/25 1339 <Electronically signed by Jaxson patel DO> Date _ Jaxson Crowe DO Cosigner Signature: Date (if applicable) CC: ~ [facility] Work Phone: Evaluation note 09-18-2024 Note Date & Type Note Facility 09-18-2024 Evaluation note Diagnosis Onset Date Resolution Diabetes chronic September 18, 2024 12:56pm Hypertension chronic September 18 12:56pm Osteoarthritis of shoulder chronic September 18, 2024 12:56pm S/P CABG x 3 chronic September 18 12:56pm Spinal stenosis at L4-L5 level chronic September 18, 2024 12:56pm Non-ST elevated myocardial infarction (non-STEMI) acute January 01 1:14pm Diabetes chronic January 01, 2 025 1:14pm Hypertension chronic January 01, 2025 1:14pm Spinal stenosis at L4-L5 level chronic January 01 1:14pm [facility] Work Phone: Procedure note 12-24-2022 Note Date & Type Note Facility 12-24-2022 Procedure note [facility] Procedure note 12-24-2022 Note Date & Type Note Facility 12-24-2022 Procedure note [facility] Evaluation note Note Date & Type Note Facility Evaluation note Diagnosis Onset Date Blood in stool acute Diabetes chronic Osteoarthritis of shoulder c hronic Spinal stenosis at L4-L5 level chronic Low back pain with bilateral sciatica [facility] Work Phone: Evaluation note Note Date & Type Note Facility Evaluation note Diagnosis Onset Date Dyspepsia acute Diabetes chronic Hypertension chronic Osteoarthritis of shoulder c hronic Pleural effusion due to another disorder acute S/P CABG x 3 acute Diabetes chronic Hypertension chronic Pleural effusion due to another disorder acute Rib pain on right side acute [facility] Work Phone: History and physical note Note Date & Type Note Facility History and physical note Note Date/Time December 24, 2022 6:48am [facility] Medical Records Department [address] [place] [address] History & Physical Exam 12/24/22 0648 MR#: [id number] Acct: [id number] Name: TIMOTEO REYES Rep #:[id number] : 1965 57 From: Neal borja MD PCP: Dr. Jaxson Crowe, DO Status:[facility] Location: [place] [address] History and Physical Date of Admission: 12/24/22 Intake Vital Signs 11/23/2307:29 12/06/2313:28 Height 5 ft 8.5 in 5 ft 8 in Weight: 226 lb 10 oz 225 lb BMI 33.9 34.2 BP 126/80 H 174/92 H Blood Pressure Location Lt brachial Lt brachial Position Sitting Sitting Respiration 17 17 Pulse 93 80 Pulse Source Monitor Monitor Temp 98.2 F 97.3 F L Temp Source Temporal Temporal Pulse Oximetry (%) 98 98 Oxygen Delivery Method room air room air Intake Visit Reasons: MELENA Chief Complaint: melena Is patient in pain?: No Allergies lisinopril Adverse Reaction (Severe, Verified 12/06/22 14:29) cough Medications tizanidine 4 mg capsule 8 mg (2 x 4 mg) PO QHS PRN low back pain #60 caps 05/25/22 [Rx Confirmed 12/06/22] amlodipine 5 mg tablet 5 mg PO DAILY #90 tabs 06/01/22 [Rx Confirmed 12/06/22] diclofenac sodium 75 mg tablet,delayed release 75 mg PO BID 07/07/22 [History Confirmed 12/06/22] metformin 500 mg tablet,extended release 24 hr 500 mg PO BID #180 tabs 07/07/22 [Rx Confirmed 12/06/22] PFSH Medical History Back problem Carpal tunnel syndrome Cervical spinal stenosis Diabetes Hypertension Neuropathy Osteoarthritis of shoulder Preoperative clearance Surgical History History of appendectomy History of back surgery History of carpal tunnel surgery of left wrist History of carpal tunnel surgery of right wrist History of shoulder surgery History of uvulopalatopharyngoplasty Family History Grandfather Brain cancerFather Myocardial infarction Social History household members: children housing: house Smoking Status: Former smoker pack-years: 5 how long ago did patient quit smokin years ago alcohol intake: current alcohol intake frequency: a few times a week Alcohol type: beer details: Social Drinker substance use type: does not use what type of physical activity do you participate in: none do you feel safe at home: Yes HPI HPI HPI: Patient is a 57-year-old male here for blood in his stool. He reports is been going on for about 2 months. He denies abdominal pain. He says the blood is fairly dark and it is in the stool. He does not report any abdominal pain. Plan on colonoscopy to evaluate the bleeding. He has never had a colonoscopy inthe past. I explained endoscopy in detail to the patient. I explained the risks including but not limited to stroke or heart attack with anesthesia, perforation of the GI tract, bleeding, infection. I explained that any of thesecould necessitate further emergency surgery. The patient understands and all questions were answered sufficiently. The patient wishes to proceed with procedure. Neal Flowers MD Pager: [facility] [address] [place] [address] [address] [place] [address] Office: ROS General General: Yes weight change; No appetite, fatigue, colon cancer, breast cancer or weakness HEENT HEENT: No difficulty swallowing, eye injury, eye surgery, swollen glands or hoarseness Endo Endocrine: Yes diabetes mellitus; No thyroid disease, thyroid cancer, Hair loss, heat intolerance or cold intolerance Skin Skin: No rash or changing moles Musc Musculoskeletal: Yes back problems, arthritis and rheumatoid arthritis; No gout or joint pain Cardio Cardiovascular: Yes high blood pressure; No murmur, pacemaker, heart disease, atrial fibrillation, heart attack, heart stent, palpitations, shortness of breat with exertion or chest pain Psych Psychiatric: No depression, anxiety or hearing voices Resp Respiratory: No shortness of breath, No sleep apnea, No cough, No COPD, No asthma, No emphysema and No wheezing Gastro Gastrointestinal: No abdominal pain, No nausea or vomiting, No diarrhea, No constipation, Yes blood in stool, No acid reflux, No hemorrhoids, No ulcers, No gallbladder problem and No black,tarry stools Johnathan Hematologic: No blood thinners, No blood disorders, No bleeding, No anemia and No blood clots Neuro Neurologic: No system reviewed and no additional complaints, except as documented, No as per HPI, No abnormal gait, No abnormal hearing, No abnormal movements, No abnormal speech, No behavioral changes, No burning sensations, No confusion, No convulsions, No disequilibrium, No dizziness, No localized weakness, No frequent falls, No headache(s), No lack of coordination, No loss ofvision, No memory loss, Yes numbness, No other visual disturbances, No radicularpain, No restless legs, No sensory deficit, No syncope, Yes tingling, No tremor(s), No weakness and No other I have examined the patient and the H&P has been reviewed. There are no clinical changes since date of exam. 12/24/22 0648 <Electronically signed by Neal Flowers MD> Cosigner Signature (if applicable): CC: Dr. Neal Flowers MD; Dr. Jaxson Crowe, DO~ Signed [facility] Work Phone: Reason for referral (narrative) Note Date & Type Note Facility Reason for referral (narrative) No reason for referral information available [facility] Work Phone: Chief Complaint and Reason for Visit Chief Complaint 3 M FU 6 M FU MELENA Reason for Visit Blood in stool Diabetes Osteoarthritis of shoulder Spinal stenosis at L4-L5 level Low back pain with bilateral sciatica Chief Complaint 3 M FU 3 M FU RUQ pain EORDER Reason for Visit Dyspepsia Diabetes Hypertension Osteoarthritis of shoulder Pleural effusion due to another disorder S/P CABG x 3 Diabetes Hypertension Pleural effusion due to another disorder Rib pain on right side Chief Complaint Admit Date 3 m fu September 18, 2024 12:56p m 3 M FU January 01, 2025 1: 14pm Reason for Visit Admit Date Diabetes September 18, 2024 12:56p m Hypertension September 18, 2024 12:56p m Osteoarthritis of shoulder September 18, 2024 12:56pm S/P CABG x 3 September 18, 2024 12:56p m Spinal stenosis at L4-L5 level September 18, 2024 12:56pm Non-ST elevated myocardial infarction (n on-STEMI) January 01, 2025 1:14pm Diabetes January 01, 2025 1: 14pm Hypertension January 01, 2025 1: 14pm Spinal stenosis at L4-L5 level January 012024 1:14pm Family History No Family History Records Found Relationship Condition Age at Onset Recorded Date/T erica grandfather Malignant neoplasm of brain Unknown father Myocardial infarction Unknown Advance Directives No Advanced Directives Records Found Advance Directive Response Recorded Date/ Time Living Will No December 21, 2022 3:26pm Power of Paint Process Engineer No December 21 3:26pm Advance Directive Response Recorded Date/ Time Living Will No December 21, 2022 2:26pm Power of [employer] No December 21 2:26pm Summary Purpose Additional Source Comments Care Teams (unrecognized sec tion and content) Team Status: Active Member Role Status Dates Dr. Jaxson Crowe , DO Family Provider Active Dr. Jaxson Crowe , DO Primary Care Provider Active Team Status: Inactive Member Role Status Dates Dr. Jaxson Crowe , DO Primary Care Provider, Referr ing Provider Active Dr. Mina Mcadams MD Attending Provider Active Team Status: Inactive Member Role Status Dates Dr. Jaxson Crowe , DO Primary Care Pr ovider, Attending Provider, Referring Provider Active Team Status: Inactive Member Role Status Dates Dr. Jaxson Crowe , DO Primary Care Provider, Referr ing Provider Active Dr. Neal Flowers MD Attending Provider Active Team Status: Active Member Role Status Dates Dr. Jaxson Crowe , DO Primary Care Provider, Referr ing Provider Active Dr. Neal Flowers MD Attending Provider, Other Provider Active Team Status: Inactive Member Role Status Dates Dr. Jaxson Crowe , DO Primary Care Provider, Referr ing Provider Active DANIELA Abreu Attending Provider Active Team Status: Inactive Member Role Status Dates Dr. Jaxson Crowe , DO Primary Care Provider Active DANIELA Abreu Attending Provider, Referring Prov ider Active Team Status: Active Member Role/Relationship Status Dates Dr. Jxason Crowe DO Family Provider Active Dr. Jaxson Crowe DO Primary Care Provider Active Team Status: Inactive Member Role/Relationship Status Dates Dr. Jaxson Crowe DO Primary Care Provider Active Start: September 18, 2024 End: September 18, 2024 Dr. Jaxson Crowe DO Attending Provider Active Start: September 18, 2024 End: September 18, 2024 Dr. Jaxson Crowe DO Referring Provider Active Start: September 18, 2024 End: September 18, 2024 Team Status: Inactive Member Role/Relationship Status Dates Dr. Jaxson Crowe DO Primary Care Provider Active Start: January 01, 2025 End: January 01, 2025 Dr. Jaxson Crowe DO Attending Provider Active Start: January 01, 2025 End: January 01, 2025 Dr. Jaxson Crowe DO Referring Provider Active Start: January 01, 2025 End: January 01, 2025 Goals (unrecognized section and content) Goals may be documented in a n alternate sectionGoals may be documented in an alternate section (unrecognized sect ion and content) No Status Records Found INFORMATION SOURCE (unrecogn ized section and content) DATE CREATED AUTHOR 01/03/2025 [facility] FOR RECORDS PERTAINING TO PATIENTS WHO ARE OR HAVE BEEN ENROLLED IN A CHEMICAL DEPENDENCY/SUBSTANCEABUSE PROGRAM, SOME INFORMATION MAY BE OMITTED. This clinical summary was aggregated from multiple sources. Caution should be exercised in using it in the provision of clinical care. This summary normalizes information from multiple sources, and as a consequence, information in this document may materially change the coding, format and clinical context of patient data. In addition, data may be omitted in some cases. CLINICAL DECISIONS SHOULD BE BASED ON THE PRIMARY CLINICAL RECORDS. [employer] provides no warranty or guarantee of the accuracy or completeness of information in this document.
--- NOTE | 2025-02-08 01:59 | EKG12_ITS ---
Test Reason : CP Blood Pressure : */* mmHG Vent. Rate : 68 BPM Atrial Rate : 68 BPM P-R Int : 154 ms QRS Dur : 76 ms QT Int : 380 ms P-R-T Axes : 70 59 83 degrees QTcB Int : 404 ms Normal sinus rhythm Normal ECG Confirmed by ADI CASTILLO ([id number]), research editor CRYSTAL RAMIREZ ([id number]) on 02/11/2025 9:14:47 AM Referred By: OSEAS Confirmed By: ADI CASTILLO
== END 2025-02-08 01:15 | disposition left against medical advice (07) ==
PROVIDERS: PCP Family Medicine
DX: Z53.21 Procedure and treatment not carried out due to patient leaving prior to being seen by health care provider (principal)
CPT/HCPCS: 93005; 99282